=== PATIENT | male | born 1930 | race Caucasian/White ===

== ENCOUNTER 2016-09-21 09:58 | Day surgery (SDC) | payer MEDICARE ==
[~2016-09-21 09:58] MED LIST: ASPI81 PO; CARD2TAB PO; CENTTAB9 PO; CYCL-36 PO; GLUCTAB47 PO; LORT5TAB PO; METO50TA PO; OMEP20CA5 PO; OYST500T77 PO; VITA500T10 PO; ZOCO40TA PO
[2016-09-21 10:56] VITALS: BP 124/71; PULSE 93; RESP 18; TEMP 98; O2SAT 98
--- NOTE | 2016-09-21 13:55 | RADRPT ---
EXAM DATE/TIME: 09/21/2016 11:01 [place] COMPARISON: No previous studies available for comparison. EXTERNAL COMPARISON : [facility], CT THORAX, W/O CONTRAST, September 01, 2016. June 16. July 04, 2015. May 09, 2015.January 03, 2015. November 05, 2014. August 02, 2014. [facility], CT THORAX, W/O CONTRAST, April 17, 2014. INDICATIONS : Right pleural effusion. MEDICAL HISTORY : Hypertension. Gastroesophageal reflux disease. Arthritis. Cerebrovascular accid ent. Bronchiectasis. Restrictive lung disease. Right apical infiltrate. Aortic valve stenosis. SURGICAL HISTORY : CABG. Bilateral cataract. Multiple EGD and colonoscopy. Left knee arthrosc opy. Right carotid endarterectomy. ENCOUNTER: Initial ACUITY: 1 month PAIN SCORE: 0/10 LOCATION: Right chest MEASUREMENTS: SKIN TO PARIETAL PLEURA: Inadequate fluid SKIN TO MAX SAFE DEPTH: Inadequate fluid ESTIMATED FLUID VOLUME: 53 cc FLUID COMPOSITION: simple FINDINGS: Pleural effusion as above. CONCLUSION: There is not enough fluid for thoracentesis. Roberto Morgan MD FACR on September 21, 2016 at 13:52 Board Certified Radiologist. This report was verified electronically.
== END 2016-09-21 11:30 | disposition home or self-care (01) ==
LOC: HRAD 09:58 → HRIP 09:59 → HRAD 11:30
PROVIDERS: ATTEND Internal Medicine Pulmonary Disease
DX: J90 Pleural effusion, not elsewhere classified (principal)
CPT/HCPCS: 76604

== ENCOUNTER 2018-01-14 07:27 | Day surgery (SDC) | payer MEDICARE ==
[~2018-01-14] VITALS: Ht 170.2 cm; Wt 76.1 kg
[2018-01-14] MEDS ORDERED: IOHEXOL 350 MG/ML 100 ML BTL (for Cath Lab) OTHER ONE (07:28)
[2018-01-14] MEDS ORDERED: TAMS0.4C4 (08:17)
[2018-01-14] MEDS ORDERED: POTA10CA PO (08:17)
[2018-01-14] MEDS ORDERED: MEMA1TAB PO (08:17)
[2018-01-14] MEDS ORDERED: FLUT50SP EACH NARE (08:17)
[2018-01-14] MEDS ORDERED: FURO20TA PO (08:17)
[2018-01-14] MEDS ORDERED: OMEP40CA2 (08:17)
[2018-01-14] MEDS ORDERED: ALBUAER3 (08:17)
[2018-01-14] MEDS ORDERED: ASPI-516 CHEW (08:17)
[2018-01-14 08:19] VITALS: BP 117/67; PULSE 77; RESP 18; TEMP 98.1; O2SAT 99
--- NOTE | 2018-01-14 08:57 | RADRPT ---
EXAM DATE/TIME: 01/14/2018 08:21 [facility] COMPARISON: No previous studies available for comparison. INDICATIONS : TAVR. MEDICAL HISTORY : None. SURGICAL HISTORY : None. ENCOUNTER: Initial ACUITY: 1 day PAIN SCORE: 0/10 LOCATION: Bilateral chest FINDINGS: Single view chest demonstrates the patient be post median sternotomy. The heart is mildly enlarged. T he lungs demonstrate chronic appearing interstitial changes but are otherwise clear. Visualized bony structures are grossly intact CONCLUSION: 1. Cardiomegaly and postsurgical changes. No acute abnormality identified. Blade Morgan MD on January 14, 2018 at 8:54 Board Certified Radiologist. This report was verified electronically.
[2018-01-14] MEDS ORDERED: HEPARIN-NS/PF INJ 1,000 ML ONE (11:08)
[2018-01-14] MEDS ORDERED: MIDAZOLAM HCL 2 MG/2 ML VIAL ONE (11:09)
--- NOTE | 2018-01-14 11:37 | PD.FRAIL ---
Date: January 14, 2018 Height: 170.18 cm Weight: 76.1 kg Albumin 01/14/18 08:00: Albumin 3.7 Pass/Fail: Pass [place] Activities Daily Living Ambrosio ADL Score: Bathing(bathes self/help in single area): [place] (1), Dressing(gets/puts clothes on self): [place] (1), Toileting(goes without help): [place] ( 1), [facility]assisted or [facility] [place] (1), Continence( complete self-control): [place] (1), Feeding(self, prep by another allowed) : [place] (1), Total: 6 Pass/Fail: Pass Supervisor Post Wave Strength Grasp 1: 12 Grasp 2: 10 Grasp 3: 12 Average: 11.3 Pass/Fail: Fail 15-Foot Walk 15-Foot Walk (seconds): 11 Pass/Fail: Fail (USES CANE) Total Frailty Total Frailty (out of 4): 2 (PATIENT LIVES ALONE, POOR HISTORIAN, POOR MEMORY RECALL) Frailty Index Score Reference Supervisor Post Wave Strength: BMI: <=24 Cutoff for pourer metal strength(Kg): <=29 BMI: 24.1-28 Cutoff for pourer metal strength(Kg): <=30 BMI: >28 Cutoff for pourer metal strength(Kg): <=32 15-Foot Walk: Height: <=173 cm 15-Foot Walk Cutoff Time: >=7 seconds Height: >173 cm 15-Foot Walk Cutoff Time: >=6 seconds Sandeep Hopper RN January 14, 2018 11:37
[2018-01-14] MEDS ORDERED: oxyCODONE/ACETAMINOPHEN 5 MG/325 MG TAB PO PRN (12:15)
[2018-01-14] MEDS ORDERED: SODIUM CHLOR 0.9% 250 ML INJ 250 ML IV PRN (12:15)
[2018-01-14] MEDS ORDERED: LORazepam 2 MG/ML VIAL IV PUSH PRN (12:15)
[2018-01-14] MEDS ORDERED: BACITRACIN OINT 0.9 GM PKT TOP ONE (12:15)
[2018-01-14] MEDS ORDERED: ATROPINE SULFATE 1 MG/ML VIAL IV PUSH PRN (12:15)
[2018-01-14] MEDS ORDERED: LIDOCAINE HCL 1% 50 ML VIAL INFIL PRN (12:15)
[2018-01-14] MEDS ORDERED: MISC INFORMATION XX ONE (12:15)
--- NOTE | 2018-01-14 12:20 | CATHPROC ---
[employer] HIS Report Study Information Study Number Admission Scheduled Start Study Start [id number] Jan 14 2018 7:27AM 01/14/2018 Jan 14 2018 8:56AM [place] [facility] Cardiac Catheterization Admit Source Facility Department Other [facility] - Chief Medical Director Physician and Clinical Staff Initial Armando Hung [place] Tana Matthews RN Other cathlab, cathlab Recorder Mandeep Robison RCIS(BS) Scrub Janet King RT(R) Procedures Performed Procedure Location (Site) Vessel Name Coronary Angiograms LCA Left Coronary Coronary Angiograms RCA Right Coronary Coronary Angiograms HAILE-LAD Left Coronary Coronary Angiograms SVG-DIAG Left Coronary Coronary Angiograms SVG-RCA Right Coronary Equipment Time Community [facility] Coordinator Description Size Mfg Part Number Used/Scraped ARROW INTERNATIONAL CATHETER, FR.7 BALLOON [id number] 11:20 FR 7 Used INC. WEDGE PRESSURE *[id number] TRANSDUCER, TRWe ClusterAVE [id number] 11:20 BOYKIN SHABAZZ * Used W/STOCKCOCK *[id number] 12:00 CARDIVA MEDICAL VASCADE, FR5 CLOSURE SYSTEM FR 5 Used *[id number] 11:59 CARDIVA MEDICAL VASCADE, FR6 CLOSURE SYSTEM FR 6\7 Used *[id number] *[id number] *[id number] 11:20 MEDLINE INDUSTRIES PACK, CCL CUSTOM * Used *[id number] 11:20 Femasys PACER PEN, SKIN DUAL W/ RULER * Used *[id number] 11:48 MEDTRONIC JL 4.0 DXTERITY CATHETER FR 5 Used *[id number] 11:20 Matchup MEDICAL WIRE, 3MMJ .035 180CM 180CM Used *[id number] 11:53 Matchup MEDICAL WIRE, EXCHANGE 260CM 3MMJ 260CM Used *[id number] 11:20 NAMIC MANIFOLD, 2 PORT * Used *[id number] 11:20 NAMIC MANIFOLD, 4 PORT * Used *[id number] 11:20 NYCOMED OMNIPAQUE, 350 MG, 150ML 150ML [id number] Used [id number] 11:20 ALATORRE MEDICAL BLANKET,WARM AIR CCL * Used *[id number] 11:20 TERUMO MEDICAL SHEATH, FR5 TERUMO (10CM) FR 5 Used *[id number] 11:20 TERUMO MEDICAL SHEATH, FR7 TERUMO (10CM) FR 7 Used *[id number] History: Current Medications Medication Dosage/Unit Route Frequency Last Date/Time Taken ASA History: Allergies Allergy Reaction No Known Allergies Haykdde-Yla-Lrl Reductase ACHES Inhibitor egg banana milk wheat History: Risk Factors Family History of Hypertension Dyslipidemia Previous DE Previous Heart Failure Premature CAD Yes Yes No No Yes Prior Valve Prior PCI Prior PCIDate Prior CABG Prior CABGDate Surgery No Yes 08/30/2009 Yes 08/30/2002 Cerebrovascular 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 Diabetes Disease Disease Disease No Yes No Yes No History: Symptoms/Diagnosis Selection Items SOB History: CV Disease Selection Items Known CAD History: Stress Tests Stress or Imaging Studies Performed No History: Other Disease Selection Items CAD HTN History: DE/CV Data Previous Cath Date Previous CABG Date 08/30/2009 08/30/2002 History: Other Current Smoker Method Quit Packs a Day Years Used Pack Years No Cigarettes 46 Years Ago 3 27 81 Labs Hgb (g/dl) Hct (%) WBC (l/cumm) Platelets (thousands) 11.60-17.00 35.00-51.00 4.00-11.00 150.00-450.00 12.4 39 6.1 210 Glucose (mg/dl) BUN (mg/dl) Creatinine (mg/dl) BUN:Creatinine (1:x) 74.00-106.00 7.00-18.00 0.50-1.30 10.00-20.00 98 16 0.9 17.8 Na (meq/l) K (meq/l) 136.00-145.00 3.50-5.10 136 4.5 INR (PTT:PT) 0.90-1.10 1 CPK-MB (ng/ML) 0.50-3.60 Not Drawn Medication Medication Total Dose (Bolus/Oral) Medication Total Dosage/Unit 1% XYLOCAINE 20 mL FENTANYL 25 mcg VERSED 0.5 mg Medications (Bolus/Oral) Medication Time Given Dosage/Unit Administered By Reason VERSED 01/14/2018 11:32:25 AM 0.5 mg Tana Matthews 0.5 mg VERSED given in lab by Tana Matthews RN in Left Antecubital via Peripheral IV. Ordered by Armando Ron. FENTANYL 01/14/2018 11:34:32 AM 25 mcg Tana Matthews 25 mcg FENTANYL given in lab by Tana Matthews RN in Left Antecubital via Peripheral IV. Ordered b y Armando Ron. 1% XYLOCAINE 01/14/2018 11:37:43 AM 20 mL Armando Ron 20 mL 1% XYLOCAINE given in lab by Armando Ron in Right Groin via Subcutaneous. Medication (Drip) Medication Time Given Dosage/Unit Concentration/Unit Diluent (ml) Solution IV Solutions 01/14/2018 11:11:19 AM 0 mL (IV) 500 NaCl .9 Patient arrived on IV Solutions in Left Antecubital via Peripheral IV. Pump/Drip Flow = 20 ml/hr usin g NaCl .9. Initial Case Assessment Cardiovascular HR Rhythm NIBP Chest Pain 73 nsr 149/75 0 Edema Present Skin color Skin None Normal Warm Dry Circulatory - Right Pulses Dorsalis Pedis Femoral 1 2 Scale (0,1,2,3,4,d) Circulatory - Left Pulses Dorsalis Pedis Femoral 1 2 Scale (0,1,2,3,4,d) Neurological State Oriented to time-place- Alert Moves all extremities person Respiration - General Respiration Rate SpO2 (%) (B/min) 16 100 Chronological Log Time Study Chronological Log 11:02:00 Patient arrived via Bed. 11:02:15 Patient Name, D.O.B, / Armband Verified By R.N. 11:02:30 Consent signed by the physician and the patient and verified by the Chief Medical Director staff. 11:11:08 Pre-op and post- op instructions given; patient acknowledges understanding of instructions. 11:11:13 Verbal Stimulation=2 Physical Stimulation=2 Airway=2 Respiration=2 TOTAL=8. (0=absent, 1=li mited, 2=present) 11:11:13 Presedation assessment performed by Chief Medical Director RN. 11:11:14 Immediate Presedation assesment performed by physician. 11:11:15 Patient has been NPO for More than 6Hrs. 11:11:15 Skin Breakdown- none per patient 11:11:16 Patient Warmer Placed on the Table. 11:11:17 Franky Prominences Protected 11:11:18 A # 20 IV was noted in the Antecubital (left). Grade = 0 11:11:19 Patient arrived on IV Solutions in Left Antecubital via Peripheral IV. Pump/Drip Flow = 20 ml/hr using NaCl .9. 11:11:19 History and physical on the chart or being dictated. Vitals capture started with the following parameters, Patient=Adult, Interval=5 min, Initial Pr jvzpua=139 mmHg, 11:17:28 Deflation Rate=5 mmHg, Cuff placed on Left Arm 11:18:10 HR=73 bpm, SQUL=815/75 mmhg, PgM3=656.0 %, Resp=14 B/min, Pain=0, Marco A=10, Womack=2 Assessment: Initial Case, HR=73 BPM, Rhythm=nsr, UGOI=667/75 mmhg, Chest Pain=0, Edema=None, Co vanessa=Normal, Skin = Warm, Dry Right Pulses: Zak Ped=1, Femoral=2 11:20:58 Left Pulses: Zak Ped=1, Femoral=2 Neurological: State=Alert, Ox3, PARKER Respiration: Resp=16 B/min, XsS2=926 % 11:21:20 Bilateral groins prepped with 2% chlorhexidine, and draped after a 3 minute waiting time. 11:23:09 HR=74 bpm, YJJZ=274/85 mmhg, JlR0=820.0 %, Resp=16 B/min, Pain=0, Marco A=10, Womack=2 11:24:49 MD arrived. 11:27:10 Contrast Scanned 11:27:11 Immediate Presedation assesment performed by physician. 11:27:29 Reference ECG taken 11:28:10 HR=72 bpm, ROCR=776/77 mmhg, QjL9=761.0 %, Resp=20 B/min, Pain=0, Marco A=10, Womack=2 11:32:25 0.5 mg VERSED given in lab by Tana Matthews, RN in Left Antecubital via Peripheral IV. O rdered by Armando Ron. 11:32:29 Pressure channel 1 zeroed. 11:33:12 HR=75 bpm, JTUG=732/74 mmhg, GlV8=031.0 %, Resp=15 B/min, Pain=0, Marco A=10, Womack=2 25 mcg FENTANYL given in lab by Tana Matthews RN in Left Antecubital via Peripheral IV. Ord ered by Asaf, 11:34:32 Armando. Time Out. Correct patient, correct procedure, correct physician, labs, allergies, and equipment verified with tailings dam laborer 11:37:03 team present. Fire risk assesment completed (see hard stop sheet for coding). Time Out Conc urred by MD and individual staff in procedure. 11:37:38 Case Start 11:37:39 Verbal Stimulation=2 Physical Stimulation=2 Airway=2 Respiration=2 TOTAL=8. (0=absent, 1=li mited, 2=present) 11:37:43 20 mL 1% XYLOCAINE given in lab by Armando Ron in Right Groin via Subcutaneous. 11:38:13 HR=75 bpm, VPHN=140/80 mmhg, SaH9=815.0 %, Resp=12 B/min, Pain=0, Marco A=10, Womack=2 11:40:14 Access site was Right Femoral Artery. 11:40:18 A SHEATH, FR5 TERUMO (10CM) FR 5 was advanced into the Fem Art (right) using the Percutaneo us technique. 11:41:06 Access site was Right Femoral Vein. 11:41:11 A SHEATH, FR7 TERUMO (10CM) FR 7 was advanced into the Fem Vein (right) using the Percutane ous technique. 11:41:15 A CATHETER, FR.7 BALLOON WEDGE PRESSURE FR 7 was inserted via Fem Vein (right) Recorded Pressure: RA, HR=74, Condition=Condition 1 11:42:37 (Right Atrium) RA Recorded Pressure: RV, HR=75, Condition=Condition 1 11:43:08 (Right Ventricle) RV 11:43:10 HR=74 bpm, TKMT=423/77 mmhg, SpO2=99.0 %, Resp=14 B/min, Pain=0, Marco A=10, Womack=2 Recorded Pressure: MPA, HR=74, Condition=Condition 1 11:43:50 (Main Pulmonary Artery) MPA Recorded Pressure: PCW, HR=73, Condition=Condition 1 11:45:22 (Pulmonary Capillary Wedge) PCW 11:45:52 Saturation: Site=PA (Pulmonary Artery) , O2=75.2 %, Hgb=12.4 gm/dl, Condition=Condition 1. Used in calculation. 11:46:04 [place] Sarmad Catheter Removed A JR 4.0 INFINITI CATHETER FR 5 was advanced over a wire. OMNIPAQUE, 350 MG, 150ML 150ML was us ed for 11:46:05 injections. 11:46:31 Saturation: Site=Ao (Aorta) , O2=97.8 %, Hgb=12.4 gm/dl, Condition=Condition 1. Used in rosanna culation. 11:48:02 The RCA was injected and visualized at various angles. OMNIPAQUE, 350 MG, 150ML 150ML used . 11:48:06 HR=74 bpm, IRHI=974/77 mmhg, OpJ3=821.0 %, Resp=12 B/min, Pain=0, Marco A=10, Womack=2 Recorded Pressure: Ao, HR=74, Condition=Condition 1 11:48:10 (Aorta) Ao 137/60/94 11:48:47 The SVG-DIAG was injected and visualized at various angles. OMNIPAQUE, 350 MG, 150ML 150ML used. 11:50:05 The SVG-RCA was injected and visualized at various angles. OMNIPAQUE, 350 MG, 150ML 150ML u sed. 11:53:08 HR=73 bpm, XAMU=308/70 mmhg, IjZ0=676.0 %, Resp=12 B/min, Pain=0, Marco A=10, Womack=2 11:53:20 The previous wire was exchanged for a WIRE, EXCHANGE 260CM 3MMJ 260CM. After removing the current catheter a SHYAM INFINITI CATHETER FR 5 was advanced over a WIRE, EXCH CHANDANA 260CM 11:53:24 3MMJ 260CM. 11:54:14 Wire removed 11:55:06 The HAILE-LAD was injected and visualized at various angles. OMNIPAQUE, 350 MG, 150ML 150ML used. After removing the current catheter a JL 4.0 DXTERITY CATHETER FR 5 was advanced over a WIRE, 3 MMJ .035 180CM 11:55:32 180CM. 11:57:02 The LCA was injected and visualized at various angles. OMNIPAQUE, 350 MG, 150ML 150ML used . 11:58:11 HR=72 bpm, QRJB=511/67 mmhg, SpO2=99.0 %, Resp=12 B/min 11:58:12 Catheter was removed 11:58:15 VASCADE, FR6 CLOSURE SYSTEM FR 6\7 placement in the Fem Vein (right) 11:59:15 VASCADE, FR5 CLOSURE SYSTEM FR 5 placement in the Fem Art (right) 12:01:50 Case End 12:01:52 No case complications noted. 12:01:54 Cine recording checked. 12::55 Small hematoma Right Groin. Pressure applied 12:01:55 Bedside Report will be given. 12:01:58 Verbal Stimulation=2 Physical Stimulation=2 Airway=2 Respiration=2 TOTAL=8. (0=absent, 1=li mited, 2=present) 12:02:04 A Left and Right Heart Cath was performed. 12:03:08 HR=76 bpm, RRZW=297/68 mmhg, SpO2=98.0 %, Resp=16 B/min, Pain=0, Marco A=10, Womack=2 12:08:09 HR=77 bpm, GEXJ=435/81 mmhg, SpO2=98.0 %, Resp=15 B/min, Pain=0, Marco A=10, Womack=2 12:13:10 HR=73 bpm, UDTY=383/76 mmhg, SpO2=99.0 %, Resp=15 B/min, Pain=0, Marco A=10, Womack=2 12:18:11 HR=74 bpm, JZTH=350/75 mmhg, SpO2=99.0 %, Resp=15 B/min, Pain=0, Marco A=10, Womack=2 12:20:17 Sterile dressing applied to site. Hematoma expressed, groin WNL. 12:20:29 Vitals capture stopped. 12:20:31 [facility] - Contrast Media Used In Study Contrast Total Opened (mL) Total Used (mL) Total Wasted (mL) Omnipaque 75 75 0 End Study - Maximum Contrast Load Max Contrast Load (mL) 422.7 End Study - Radiation Exposure Fluoro Time (minutes) 4.8 End Study - Patient Disposition Complications Transferred To Interventional Outcome No Chief Medical Director Holding No attempt made
--- NOTE | 2018-01-14 12:58 | MA ---
cc: Armando Ron MD DATE: 01/14/2018 PROCEDURES PERFORMED: 1. Fluoroscopy with interpretation. 2. Coronary angiography. 3. Coronary bypass graft angiography. 4. Right heart catheterization. METHOD: The risks, benefits and alternatives discussed with the patient. The patient understood and consented to the procedure. The patient brought into the catheterization lab, placed on the catheterization table. The right groin prepped and draped in a sterile fashion. The right groin was anesthetized with 2% lidocaine. The right common femoral artery was cannulated. A 5-Samoan 11 cm sheath was placed without difficulty. The right femoral vein was accessed. A 7-Samoan 11 cm sheath was placed without difficulty. Right heart catheterization: A 7-Samoan Massillon-Sarmad pulmonary arterial catheter was advanced through the right femoral venous sheath to the level of the right atrium under fluoroscopic guidance. Hemodynamics were performed in all chambers while advancing to the pulmonary capillary wedge position. 1. Right atrial pressure measured 12 mm. 2. Right ventricular pressure is 38/1 mmHg. 3. Pulmonary arterial pressure 37/12 mmHg. 4. Pulmonary capillary wedge pressure 22 mmHg. Cardiac output 3.3 liters per minute. Cardiac index 6.3 liters per minute/m2. Coronary angiography: 1. Left main coronary artery has bilateral luminal irregularities. 2. Left anterior descending coronary artery has 70% stenosis proximally and is 100% occluded in the midsegment and there is a 90% diagonal branch stenosis. 3. Right coronary is small caliber size, appears to have an occluded first obtuse marginal branch which is small. There is 50% stenosis throughout the mid segment of the circumflex. 4. The right coronary artery is occluded proximally. Coronary bypass graft angiography: 1. Left internal mammary to the left anterior descending coronary artery is patent. 2. Left lesser saphenous vein graft to the diagonal branch patent. 3. Saphenous vein graft to the right coronary artery is widely patent. CONCLUSIONS: 1. Severe crow 3-vessel coronary artery disease. 2. 3/3 coronary bypass grafts widely patent. 3. Normal left and right-sided filling pressures,m normal pulmonary pressures, normal cardiac output index. PLAN: Monitor the patient closely for any post-procedural complications. Anticipate possible discharge later today. We will then have a discussion about consideration for transcatheter aortic valve replacement. MD ROLO Rios/DL , 12:15 PM , 12:57 PM
[2018-01-14 14:37] LABS: BILIRUBIN, URINE NEG (NEG); BLOOD, URINE SMALL (NEG); GLUCOSE,URINE NEG (NEG); KETONE, URINE TRACE mg/dL (NEG); NITRITE,URINE NEG (NEG); PH, URINE 6.5 (5.0-8.5); URINE COLOR LIGHT-YELLOW (YELLW/STRAW); URINE LEUKOCYTE ESTERASE NEG (NEG)
--- NOTE | 2018-01-14 16:20 | PD.CAR.PN ---
CVT Progress Note Subjective/Hospital Course: pt seen and evaluated/ full consult to follow RISK SCORES About the STS Risk Calculator Procedure: AV Replacement Risk of Mortality: 4.364% Morbidity or Mortality: 24.278% Long Length of Stay: 10.988% Short Length of Stay: 19.466% Permanent Stroke: 2.456% Prolonged Ventilation: 13.679% DSW Infection: 0.267% Renal Failure: 6.94% Reoperation: 9.657% Objective: Vital Signs Date Time Temp Pulse Resp B/P (MAP) Pulse Ox O2 Delivery O2 Flow Rate FiO2 01/14/18 10:45 96 Room Air 01/14/18 08:19 98.1 77 18 117/67 (84) 99 Labs: Laboratory Tests Test 01/14/18 08:00 01/14/18 14:10 Albumin 3.7 GM/DL (3.4-5.0) Urine Color LIGHT-YELLOW (YELLW/STRAW) Urine Turbidity CLEAR (CLEAR) Urine pH 6.5 (5.0-8.5) Urine Specific Kerrick 1.038 (1.002-1.035) Urine Protein NEG mg/dL (NEG-TRACE) Urine Glucose (UA) NEG mg/dL (NEG) Urine Ketones TRACE mg/dL (NEG) Urine Occult Blood SMALL (NEG) Urine Nitrite NEG (NEG) Urine Bilirubin NEG (NEG) Urine Urobilinogen LESS THAN 2.0 MG/DL (LESS Urine Leukocyte Esterase NEG (NEG) Urine RBC 1 /hpf (0-3) Urine WBC LESS THAN 1 /hpf (0-5) Microscopic Urinalysis Comment CULT NOT INDICATED Ora Ramirez January 14, 2018 16:20
--- NOTE | 2018-01-14 17:10 | MB ---
cc: Ora Ramirez DATE: 01/14/2018 HISTORY OF PRESENT ILLNESS: This is an 87-year-old male, patient of Dr. Ron, who has history of aortic stenosis, has been having some fatigue off and on for the last year, recently treated for pneumonia in November with 10-day course of antibiotics, has had a prior sternotomy with coronary artery bypass grafting in 2002, underwent cardiac catheterization today. Results are severe [place] 3-vessel disease, 3/3 coronary bypasses widely patent. Normal left and right filling pressures, normal pulmonary pressures and normal cardiac output and index. We were consulted to evaluate for transcatheter aortic valve replacement. PAST MEDICAL HISTORY: Includes aortic stenosis, coronary artery disease, diastolic CHF, anemia, ataxic gait. He uses a walker. Cervical radiculitis, degenerative disk disease, enlarged prostate, frequent falls, hypertension, hyperlipidemia, recent left lower lobe pneumonia, some history of cognitive impairment. He has had a history of a TIA, prior history of tobacco use. PAST SURGICAL HISTORY: Include left knee arthroscopy, back surgery by Dr. Varela 2 years ago L3-L4 spine fusion, coronary artery bypass graft x 3 in 2002, bilateral cataract surgery, colonoscopy. He has had some skin cancer removed on his forehead. He has had an EGD. He has had cervical epidural injections under fluoroscopy. Right endarterectomy, tonsillectomy. ALLERGIES: THE PATIENT HAS ALLERGIES TO STATINS, BANANAS, EGGS, MILK AND WHEAT. HOME MEDICATIONS: 1. Albuterol. 2. Aspirin. 3. Flonase. 4. Lasix. 5. Namenda. 6. Omeprazole. 7. Potassium. 8. Flomax. FAMILY HISTORY: Mother from sudden . Father from heart disease. SOCIAL HISTORY: , has 2 children. Daughter, Samaria Riley is at the bedside. Lives alone. Lives at [facility] but is still in the independent living area. He does still drive. He smoked for 25 years, quit smoking in 1971. Prior heavy ETOH, quit 2 years ago. Occasional glass of wine, but he quit that 6 months ago. REVIEW OF SYSTEMS: As above in the HPI, other 12 systems unremarkable. PHYSICAL EXAMINATION: VITAL SIGNS: Blood pressure 116/70, heart rate of 70, temperature afebrile, on room air O2 saturation 96%. GENERAL: Patient is awake, alert, in no acute distress. HEENT: Head is normocephalic, atraumatic. Pupils equal and reactive. Oral mucosa pink, moist. He does wear a hearing aid. NECK: Supple. No JVD. Well healed scar in the right neck area. HEART: Sounds S1, S2, grade III/ systolic murmur best noted left sternal border. LUNGS: Diminished in the bases, otherwise clear to auscultation. ABDOMEN: Soft, nontender, no masses, no organomegaly. EXTREMITIES: No cyanosis, clubbing, or edema. LABORATORY DATA: Shows albumin 3.7, hemoglobin 12, hematocrit of 39, white cell count of 6.1, platelet count of 210. INR 1.0, sodium 136, potassium 4.5, BUN is 16, creatinine 0.92. IMAGING STUDIES: Chest x-ray on the showed some minimal stranding infiltrates both lung bases, prior median sternotomy, COPD changes, some mild early heart failure. IMPRESSION: This is an 87-year-old male with history of coronary artery disease, prior midsternal sternotomy, bypass grafting x 3 in 2002. Risk factors include cognitive impairment, coronary artery disease, history of transient ischemic attack, diastolic heart failure. STS data has been documented and placed in the electronic record. The risk of mortality is 4.3. PLAN: Recommendation is for transcatheter aortic valve replacement. KRISTIAN Montana MD JRT/JOSE MANUEL , 04:29 PM , 05:10 PM
[2018-01-14] MEDS ORDERED: IOHEXOL 350 MG/ML 10 ML VIAL (for RAD DIAG) IVCONTRAST ONE (18:20)
--- NOTE | 2018-01-14 18:44 | RADRPT ---
EXAM DATE/TIME: 01/14/2018 17:44 [place] COMPARISON: No previous studies available for comparison. INDICATIONS : Pre op TAVR. IV CONTRAST: 97 cc Omnipaque 350 (iohexol) IV RADIATION DOSE: 9.20 CTDIvol (mGy) MEDICAL HISTORY : Cerebrovascular disease. Cardiovascular disease SURGICAL HISTORY : CABG ENCOUNTER: Initial ACUITY: 1 day PAIN SCALE: 0/10 LOCATION: chest TECHNIQUE: Volumetric scanning was performed using a multi-row detector CT scanner. The data was post processed with a variety of visualization algorithms including full volume maximum intensity projection, multi -planar sliding thin slab reformation, curved planar reformation, and surface rendering techniques. Using automated exposure control and adjustment of the mA and/or kV according to patient size, radiat ion dose was kept as low as reasonably achievable to obtain optimal diagnostic quality images. DIC OM format image data is available electronically for review and comparison. FINDINGS: CARDIAC: The patient is status post sternotomy and coronary bypass surgery. The coronary system is right domin ant. Calcifications are seen throughout the mo[place] coronary arteries. There are 2 bypass grafts seen , one extending to the right coronary artery and the other extending to a diagonal. It also appears t he left internal mammary artery has been used for an LAD bypass graft. The bypass grafts are 4.3 cm d istal to the aortic valve. AORTIC ROOT/VALVE: There are 3 cusps. There are heavy aortic valve calcifications present. The aortic root measures 2.8 cm. THORACIC AORTA: Mid thoracic aorta measures 3.7 cm. There is mild calcification seen at the ascending aorta and aorti c arch. There are calcifications are seen at the origin of the great vessels. ABDOMINAL AORTA: There is atherosclerotic thickening and calcification seen throughout the abdominal aorta and through out the arterial system. An area of significant stenosis is not clearly identified. CELIAC ARTERY: Celiac artery is widely patent. Calcifications are seen at the origin. SMA: Superior mesenteric artery is widely patent. Calcifications are seen at the origin. RIGHT RENAL ARTERY: Right renal artery is widely patent. Calcifications are seen at the origin. LEFT RENAL ARTERY: Left renal artery is widely patent. Calcifications are seen at the origin. RIGHT COMMON ILIAC: No evidence of aneurysm, mural thrombus, dissection, or stenosis. Scattered calcifications are seen. The common femoral measures 9 mm.. There's a 4.5 cm mass seen in the right groin with central flow/c ontrast-enhancement consistent with a pseudoaneurysm. LEFT COMMON ILIAC: No evidence of aneurysm, dissection, or stenosis. There is mural thickening/plaque at the left commo n iliac artery without significant stenosis. Scattered calcifications are seen throughout. The common femoral measures 1 cm. THORAX: There is increased density seen at the posterior aspect of the right upper lobe including a irregular 0.9 cm masslike area seen. This could all be secondary to consolidation. An underlying neoplastic pr ocess cannot be excluded. There some minimal increased density the posterior lower lobes bilaterally likely related to atelectasis. There are minimal bilateral pleural effusions. There is a enlarged lym ph nodes seen in the precarinal region measuring 1.9 cm. ABDOMEN: The liver, spleen, pancreas, adrenal glands and right kidney are normal. There is a 1.1 cm cyst at th e left kidney. There is degenerative change and postoperative change in the lumbar spine with surgica l hardware. PELVIS: Again noted is the right common femoral pseudoaneurysm. Calcifications are seen the prostate. CONCLUSION: 1. Status post sternotomy and coronary artery bypass surgery. 2. Extensive aortic valve calcifications. 3. 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 4. Irregular density in the posterior right upper lobe. This is nonspecific. Consolidation or neoplas m could have this similar appearance. Ideally, a PET FDG study would be performed to evaluate this re gion. Abdias Harman MD on January 14, 2018 at 18:20 Board Certified Radiologist. This report was verified electronically.
--- NOTE | 2018-01-15 13:58 | EKG ---
Date Performed: 01/14/2018 Time Performed: 14:29:34 PTAGE: 87 years EKG: Sinus rhythm . Inferior/lateral ST-T changes may be due to myocardial ischemia Abnormal ECG PREVIOUS TRACING : 11/30/2009 08.30 Since the previous tracing, no significant change noted DOCTOR: Andres Finney Interpretating Date/Time 01/15/2018 13:55:18
== END 2018-01-14 18:39 | disposition home or self-care (01) ==
LOC: HDIC 07:27 → HDOC 07:27
PROVIDERS: ATTEND Internal Medicine
DX: I25.10 Atherosclerotic heart disease of native coronary artery without angina pectoris (principal); I35.0 Nonrheumatic aortic (valve) stenosis; I10 Essential (primary) hypertension; J44.9 Chronic obstructive pulmonary disease, unspecified; Z95.1 Presence of aortocoronary bypass graft; Z79.82 Long term (current) use of aspirin; Z87.891 Personal history of nicotine dependence; Z86.73 Personal history of transient ischemic attack (TIA), and cerebral infarction without residual deficits
CPT/HCPCS: 71045; 74174; 81001; 82040; 82810; 87641; 93005; 93457; 94010; C1760; C1769; C1893; G0269; J1644; J2250; J3010; Q9967

== ENCOUNTER → 2018-02-14 | Outpatient (CLI) | payer MEDICARE ==
[~2018-02-14] MED LIST changes: +ALBUAER3; +ASPI-516 CHEW; -ASPI81 PO; -CARD2TAB PO; -CENTTAB9 PO; -CYCL-36 PO; +FLUT50SP EACH NARE; +FURO20TA PO; -GLUCTAB47 PO; -LORT5TAB PO; +MEMA1TAB PO; -METO50TA PO; -OMEP20CA5 PO; +OMEP40CA2; -OYST500T77 PO; +POTA10CA PO; +TAMS0.4C4; -VITA500T10 PO; -ZOCO40TA PO
[2018-02-14 10:41] LABS: AUTOMATED NEUTROPHIL # 3.8 TH/MM3 (1.8-7.7); BASOPHIL # 0.1 TH/MM3 (0-0.2); BASOPHIL % 1.8 % (0.0-2.0); EOSINOPHIL # 0.5 TH/MM3 (0-0.4); EOSINOPHIL % 7.5 % (0.0-4.0); HEMATOCRIT 35.2 % (39.0-51.0); LYMPH % 19.4 % (9.0-44.0); LYMPHOCYTE # 1.2 TH/MM3 (1.0-4.8); MEAN CELL VOLUME 92.3 FL (80.0-100.0); MEAN CORPUSCULAR HEMOGLOBIN 31.6 PG (27.0-34.0); MEAN CORPUSCULAR HGB CONC 34.2 % (32.0-36.0); MEAN PLATELET VOLUME 8.7 FL (7.0-11.0); MONO % 8.5 % (0.0-8.0); MONOCYTE # 0.5 TH/MM3 (0-0.9); NEUT % 62.8 % (16.0-70.0); PLATELET COUNT 175 TH/MM3 (150-450); RED BLOOD COUNT 3.81 MIL/MM3 (4.50-5.90); RED CELL DISTRIBUTION WIDTH 14.6 % (11.6-17.2); WHITE BLOOD COUNT 6.1 TH/MM3 (4.0-11.0)
[2018-02-14 10:48] LABS: INTERNATIONAL NORMALIZED RATIO 1.1 RATIO; PROTHROMBIN TIME - PATIENT 10.7 SEC (9.8-11.6)
[2018-02-14 11:15] LABS: BICARBONATE 28.1 MEQ/L (21.0-32.0); CALCIUM 8.8 MG/DL (8.5-10.1); CREATININE 0.97 MG/DL (0.60-1.30)
== END ==
LOC: CLAB 10:08
PROVIDERS: ATTEND Internal Medicine
DX: Z01.812 Encounter for preprocedural laboratory examination (principal); I35.0 Nonrheumatic aortic (valve) stenosis
CPT/HCPCS: 36415; 80048; 85025; 85610; 86850; 86900; 86901

== ENCOUNTER 2018-02-16 05:32 | Inpatient (IN) | payer MEDICARE ==
[2018-02-16] VITALS (10 sets, daily range): BP systolic 107–144; BP diastolic 40–67; PULSE 68–92; RESP 16–18; TEMP 94.4–98.2; O2SAT 96–100
[~2018-02-16] VITALS: Ht 170.2 cm; Wt 69.0 kg
[2018-02-16] MEDS ORDERED: POVIDONE IODINE 5% (ANTISEPSIS KIT) 4 APPLICATIONS EACH NARE PRN (06:00)
[2018-02-16] MEDS ORDERED: INSULIN HUMAN REGULAR 1,000 UNITS/10 ML VIAL SQ PRN (06:00)
[2018-02-16] MEDS ORDERED: METOPROLOL TARTRATE 25 MG TAB PO PRN (06:00)
[2018-02-16] MEDS ORDERED: SODIUM CHLORID 0.9% 500 ML IV PRN (06:00)
[2018-02-16] MEDS ORDERED: LACTATED RINGER'S 1000 ML IV PRN (06:00)
[2018-02-16] MEDS ORDERED: ceFAZolin 2 GM PREMIX 50 ML IV PRN (06:00)
[2018-02-16] MEDS ORDERED: ASPIRIN 325 MG TAB PO PRN (06:00)
[2018-02-16] MEDS ORDERED: MUPIROCIN 2% OINT 1 APPLIC/GM SYRINGE EACH NARE PRN (06:00)
[2018-02-16] MEDS ORDERED: CHLORHEXIDINE GLUCONATE 2 % 1 PACK (2 CLOTHS) TOPICAL PRN ×2 (06:00)
[2018-02-16] MEDS ORDERED: POVIDONE IODINE 5% (ANTISEPSIS KIT) EACH NARE PRN (06:00)
[2018-02-16] MEDS ORDERED: PROTAMINE SULFATE 50 MG/5 ML VIAL ONE (06:29)
[2018-02-16] MEDS ORDERED: HEPARIN SODIUM - IV 10,000 UNITS/10 ML VIAL ONE (06:29)
[2018-02-16] MEDS ORDERED: MIDAZOLAM HCL 2 MG/2 ML VIAL ONE (07:00)
--- NOTE | 2018-02-16 07:54 | MH ---
cc: Armando Ron MD DATE OF ADMISSION: 02/16/2018 INDICATION: Aortic stenosis. HISTORY OF PRESENT ILLNESS: This is an 87-year-old gentleman who follows with me in the outpatient setting, who has now recently described worsening symptoms of dyspnea and fatigue. His workup consisted of an echocardiogram which revealed severe aortic valve stenosis. He has a prior history of coronary artery bypass grafting. He was evaluated by cardiothoracic surgery and felt to be high risk for consideration of a repeat sternotomy with surgical aortic valve replacement. He then began a workup for transcatheter aortic valve replacement. He is now here today for a planned elective procedure. PAST MEDICAL HISTORY: Aortic valve stenosis, coronary artery disease with coronary bypass surgery, diastolic congestive heart failure, anemia, ataxic gait, degenerative joint disease, hypertension, hyperlipidemia, prior pneumonia, dementia, history of transient ischemic attack. ALLERGIES: STATINS, BANANAS, EGGS, MILK AND WHEAT. HOME MEDICATIONS: 1. Albuterol. 2. Aspirin. 3. Flonase. 4. Lasix. 5. Namenda. 6. Omeprazole. 7. Potassium. 8. Flomax. FAMILY HISTORY: Denies any family history of early coronary disease or sudden cardiac . SOCIAL HISTORY: Lives at [facility]. He denies any alcohol, tobacco or drug use. REVIEW OF SYSTEMS: A 12-point review of system was performed and is negative unless otherwise as noted in history of present illness. PHYSICAL EXAMINATION: VITAL SIGNS: Temperature is 98, pulse is 76, blood pressure 107/64 mmHg. GENERAL: Alert and oriented x 3 in no acute distress. HEENT: Shows pupils are reactive to light and accommodation. Extraocular movements are intact. No elevation of jugular venous distention. No thyromegaly. No lymphadenopathy, no carotid bruits. LUNGS: Clear to auscultation bilaterally. CARDIOVASCULAR: Regular with a 3/6 crescendo/decrescendo late peaking murmur at left sternal border. ABDOMEN: Nontender, nondistended with good bowel sounds. No hepatosplenomegaly. EXTREMITIES: Show no clubbing, cyanosis or edema. Good peripheral pulses. NEUROLOGIC: Cranial nerves intact. Motor, sensory grossly intact. LABORATORY DATA: WBC 6.1, hemoglobin is 12.0, platelet count is 175, INR is 1.1. Sodium 142, potassium 4.0, BUN is 15, creatinine 0.97. PREOPERATIVE WORKUP: STS score 4.3%. He is [place] Heart Association Functional Class III. BMI is 26.3. He is 2/4 frailty score. Electrocardiogram shows sinus rhythm, pulmonary function test performed on 01/14/2018 reveals FEV1 of 1.45 consistent with moderate restrictive disease. Echocardiogram from 08/31/2017 shows a jet velocity of 4.62 meters per second, mean gradient of 66 mmHg, aortic valve area of 0.66 cm2. Ejection fraction between 50 and 55 percent. There is mild to moderate mitral and tricuspid regurgitation with mild aortic valve insufficiency. Cardiac catheterization performed on 01/14/2018 reveals severe chip[place]wa-cree 3-vessel coronary disease with 3 of 3 patent coronary bypass grafts. Computed tomography analysis on 01/14/2018 reveals a short annulus diameter 22.8 mm long, annulus diameter of 27.7 mm with a perimeter of 79.8 mm. His sinus of Valsalva diameter is 32.7 mm with the sinotubular junction diameter of 27.8 mm. Left coronary height 11.9 mm. Right coronary height 16.2 mm. He has minimal luminal diameter in the right iliac system of 7.4 mm and the left of 5.3 mm. ASSESSMENT: 1. Severe aortic valve stenosis. 2. History of coronary disease with prior coronary artery bypass surgery, anemia, hypertension, hyperlipidemia, transient ischemic attack and dementia. The patient was evaluated by both Dr. Knight and Dr. Carlos who felt him to be a high surgical risk for traditional aortic valve replacement. PLAN: We will plan for a transcatheter aortic valve replacement using a Medtronic, 29 mm Evolut R bioprosthetic valve. We will approach from the right common femoral artery. Risks, benefits and alternatives were discussed with the patient. The patient understood and consented to proceed. Armando Ron MD ROLO/DL , 07:27 AM , 07:53 AM
[2018-02-16] MEDS ORDERED: EPINEPHrine HCL (1:10,000) 1 MG/10 ML SYRINGE ONE (08:41)
[2018-02-16] MEDS ORDERED: IOHEXOL 350 MG/ML 100 ML BTL (for RAD DIAG) IVCONTRAST ONE (08:59)
[2018-02-16] MEDS ORDERED: SODIUM CHLOR 0.9% 1000 ML INJ 1,000 ML IV SCH (09:34)
[2018-02-16] MEDS ORDERED: BENZOCAINE-MENTHOL (SUGAR FREE) 15 MG-3.6 MG LOZENGE BUCCAL PRN (09:45)
[2018-02-16] MEDS ORDERED: MISC INFORMATION OTHER ONE (09:45)
[2018-02-16] MEDS ORDERED: DEXTROSE 50% IN WATER 50 ML VIAL(D50) IV PUSH PRN (09:45)
[2018-02-16] MEDS ORDERED: ACETAMINOPHEN 325 MG TAB PO PRN (09:45)
[2018-02-16] MEDS ORDERED: ATROPINE SULFATE 1 MG/ML VIAL IV PUSH PRN (09:45)
[2018-02-16] MEDS ORDERED: CLOPIDOGREL 300 MG TAB PO ONE (09:45)
--- NOTE | 2018-02-16 09:50 | PD.OP ---
cc: Heaven Carlos MD; Armando Ron MD Operative Report Date of Surgery: Feb 16, 2018 Preoperative Diagnosis: (1) Diastolic heart failure (2) Aortic stenosis Postoperative Diagnosis: same Procedure: Transcatheter aortic valve replacment with a 29 Evolut R tissue valve Balloon aortic valvuloplasty with a 24 x 6 True Balloon Bilateral femoral arterial access with Perclose closure on right Left femoral venous access Aortography Fluoroscopy Anesthesia: Dr. Moon Surgeon: Heaven Carlos Co-surgeon - Dr. Ron Administration Intern(s): Dr. Knight Operation and Findings: The risks, benefits, complications, treatment options, and expected outcomes were discussed with the patient. The possibilities of reaction to medication, pulmonary aspiration, perforation of viscus, bleeding, recurrent infection, the need for additional procedures, failure to diagnose a condition, and creating a complication requiring transfusion or operation were discussed with the patient. The patient concurred with the proposed plan, giving informed consent. The site of surgery properly noted/marked. The patient was taken to hybrid operating room, identified as Az Sy and the procedure verified as Transcatheter Aortic Valve Replacement. A Time Out was held and the above information confirmed. Standard monitoring lines and Lucio catheter were placed. General anesthesia was induced. The patient was prepped and draped in a sterile fashion. Initially, left femoral arterial and venous access was acquired and 5F sheaths were placed in each vessel using a Seldinger percutaneous technique. The details of this procedure were dictated under separate note by cardiology. Once a pigtail catheter was positioned in the aortic annulus and a temporary transvenous pacemaker wire was placed in the right ventricular apex and tested, the right femoral artery was accessed using a needle followed by a guidewire under fluoroscopic guidance. The patient was heparinized and 2 Perclose devices deployed for later closure. Serial dilators were used to dilate the right femoral artery to 16 [place] caliber. A 16F Cook sheath was then inserted up to the distal abdominal aorta under fluoroscopic guidance. Arch aortography was performed to define the implant view. A balloon aortic valvuloplasty was then performed using a 24 x 6 True balloon with the patient being paced at 180 beats per minute. A 29 Evolut R transcatheter aortic valve was then positioned in the annulus and deployed with the patient being paced at 120 beats per minute. Following deployment, the valve apparatus was withdrawn and arch aortography and CAROLINE were performed to assess the valve. The valve had no significant perivalvular leaks. Gradients were then measured and the sheath was removed. Perclose sutures were secured with good hemostasis. Protamine was administered. Sterile dressings were placed. At the end of the operation , all sponge, instruments, and needle counts were correct. The patient was transferred to the CVICU in stable condition. Findings: Uneventful deployment of valve. Implants: 29 Evolut R valve Complications: none Disposition: to CVICU in stable condition Heaven Carlos MD Feb 16, 2018 09:50
--- NOTE | 2018-02-16 10:02 | MA ---
cc: Armando Ron MD DATE: 02/16/2018 PROCEDURE: Transcatheter aortic valve replacement. CUSTODIAL MAINTENANCE WORKER: Armando Ron MD [facility] LABORATORY TECHNICIAN: Heaven Carlos MD CO-SURGICAL BLOOD BANK LABORATORY TECHNICIAN: Ashli Knight MD PROCEDURES PERFORMED: 1. Fluoroscopy with interpretation. 2. Transesophageal echocardiogram. 3. Temporary transvenous pacemaker placement. 4. Aortic balloon valvuloplasty. 5. Ascending aortography. 6. Transcatheter aortic valve replacement with Medtronic Evolut R 29 mm bioprosthetic aortic valve. METHOD: The risks, benefits, and alternatives were discussed with the patient. The patient understood and consented to the procedure. The patient was brought to the catheterization lab, placed on the catheterization table. Bilateral groins were prepped and draped in sterile fashion. The left groin was accessed and a 5-Uzbek, 11 cm sheath was placed in both the artery and the vein. The right femoral artery was also accessed under fluoroscopic and angiographic guidance and a micropuncture sheath was placed, followed by upsizing to an 8-Uzbek sheath and finally a 16-Uzbek sheath. Two Perclose devices were deployed in a preclosure manner. TRANSESOPHAGEAL ECHOCARDIOGRAM: Please see separate detailed report. TEMPORARY TRANSVENOUS PACEMAKER PLACEMENT: A balloon tipped 5-Uzbek temporary transvenous pacemaker was advanced through a right jugular venous sheath to the level of the right ventricular apex. Appropriate capture was confirmed and backup rate set. ASCENDING AORTOGRAPHY: Ascending aortography was performed with a 5-Uzbek pigtail catheter advanced into the noncoronary cusp and on left anterior oblique 1 and cranial 5 view, all 3 cusps were in alignment. Ascending aorta was not significantly dilated. AORTIC VALVULOPLASTY: A 5-Uzbek AL1 catheter was advanced over a J-wire through the left common femoral sheath to the level of the ascending aorta. A 0.035-inch Amplatz straight-tipped Super Stiff wire was then navigated across the aortic valve without difficulty into the left ventricle, AL catheter advanced into the left ventricle. A 0.035-inch, 260 cm J-wire was then advanced to the left ventricular apex, the AL1 catheter removed. A 5-Uzbek pigtail catheter was then advanced to the left ventricular apex and the J-wire removed. A 0.035-inch, 260-cm Confida Eco Power Solutionstronic wire was advanced to the left ventricular apex and the pigtail catheter removed. A 24 x 40 mm TRUE aortic valvuloplasty balloon was then advanced across the aortic valve. With rapid ventricular pacing at 180 beats per minute, aortic valvuloplasty was performed. Repeat transesophageal echocardiogram now showed moderate to severe aortic valve insufficiency. The patient remained hemodynamically stable. No pericardial effusion noted. TRANSCATHETER AORTIC VALVE REPLACEMENT: A 16-Uzbek Medtronic Evolut R device with incorporated sheath was then prepped, the right common femoral sheath removed with the wire in place and the Medtronic device sheath was then advanced under fluoroscopic guidance to the abdominal descending aorta. The device was then advanced up and over the arch and across the aortic valve under fluoroscopic and angiographic guidance. The device was then slowly deployed and released. Repeat transesophageal echocardiogram showed appropriate placement and deployment with mild paravalvular leak. Heparin was administered throughout the entire procedure to maintain appropriate anticoagulation. The patient tolerated the procedure well and wire was removed. The right groin was then Perclosed with good hemostasis and the left common femoral artery and vein were closed with a 5-Uzbek VASCADE devices with good hemostasis. INTRAOPERATIVE TRANSESOPHAGEAL ECHOCARDIOGRAM RESULTS: 1. Mean aortic valve gradient 5 mmHg. 2. Aortic valve area of 1.3 cm2. 3. There is mild paravalvular aortic regurgitation. CONCLUSIONS: 1. Successful transcatheter aortic valve replacement with 29 mm Evolut R bioprosthetic aortic valve. 2. Successful aortic valvuloplasty. 3. Successful utilization of transvenous temporary pacemaker. PLAN: The patient will be monitored closely for any post-procedural complications and extubated. We will wait for a neurologic recovery. We will watch closely for any bleeding. He has temporary transvenous pacemaker in place. There was no high degree block. We will consult Electrophysiology for their opinion. We anticipate, without any post-procedural complications, for a 1-2 day hospital stay. MD ROLO Rios/JONATAN , 09:34 AM , 10:01 AM
[2018-02-16] MEDS ORDERED: IOHEXOL 350 MG/ML 100 ML BTL (for Cath Lab) OTHER ONE (10:43)
--- NOTE | 2018-02-16 10:47 | RADRPT ---
EXAM DATE: 02/16/2018 10:32 AM EDT AGE/SEX: 87 years / Male INDICATIONS: S?P TAVR. Heart valve surgery. CLINICAL DATA: This is the patient's subsequent encounter. Patient reports that signs and symptoms h ave been present for 3 days and indicates a pain score of 0/10. MEDICAL/SURGICAL HISTORY: Hypertension. Gastroesophageal reflux disease. Aortic valve stenosis , restrictive lung disease. CABG. Left knee arthroscopy. Right carotid endarterectomy. COMPARISON: [facility] – [place], CHEST SINGLE AP, 01/14/2018. . FINDINGS: There is a left sided catheter with tip in the deep right atrium. Stable median sternotomy wires and postsurgical features of prior cardiac surgery. Minimal bibasilar airspace disease similar to prior e xam. No significant new focal pleural or parenchymal opacities. Cardiomegaly mediastinal contours are stable. Remainder of the exam is unchanged. CONCLUSION: 1. Left-sided venous catheter with tip in the deep right atrium. 2. Stable examination with persistent minimal bibasilar airspace disease, likely atelectasis. 3. Cardiomegaly. Electronically signed by: Pedro Enriquez MD 02/16/2018 10:45 AM EDT
[2018-02-16] MEDS ORDERED: PROPOFOL 200 MG/20 ML AMP IV ONE (12:00)
[2018-02-16] MEDS ORDERED: LACTATED RINGER'S 1000 ML INJ 1,000 ML IV ONE (12:00)
[2018-02-16] MEDS ORDERED: SODIUM CHLORID 0.9% 500 ML INJ 1,000 ML IV ONE (12:00)
[2018-02-16] MEDS ORDERED: GLYCOPYRROLATE 1 MG/5 ML SYRINGE IV PUSH ONE (12:00)
[2018-02-16] MEDS ORDERED: NEOSTIGMINE 5 MG/5 ML SYRINGE IV PUSH ONE (12:00)
[2018-02-16] MEDS ORDERED: ROCURONIUM INJ 50 MG/5 ML SYRINGE IV PUSH ONE (12:00)
[2018-02-16] MEDS ORDERED: SODIUM CHLOR 0.9% 250 ML INJ 250 ML IV ONE (12:00)
[2018-02-16] MEDS ORDERED: LIDOCAINE HCL 1% PF 5 ML SYRINGE OTHER ONE (12:00)
[2018-02-16] MEDS ORDERED: PHENYLEPH/NS 1000 MCG/10 ML SYR IV ONE (12:00)
--- NOTE | 2018-02-16 13:38 | EKG ---
Date Performed: 02/16/2018 Time Performed: 10:39:50 PTAGE: 87 years EKG: Sinus rhythm Left bundle branch block Abnormal ECG PREVIOUS TRACING : 02/16/2018 10.39 DOCTOR: Armando Ron Interpretating Date/Time 02/16/2018 13:36:13
--- NOTE | 2018-02-16 13:50 | EKG ---
Date Performed: 02/16/2018 Time Performed: 06:22:34 PTAGE: 87 years EKG: Sinus rhythm . Inferior/lateral ST-T changes are nonspecific Borderline ECG PREVIOUS TRACING : 01/14/2018 14.29 DOCTOR: Armando Ron Interpretating Date/Time 02/16/2018 13:48:33
[2018-02-16] MEDS: SODIUM CHLOR 0.9% 1000 ML 1,000 ML IV SCH ×2 (14:00→22:00)
[2018-02-16] MEDS ORDERED: FUROSEMIDE 20 MG TAB PO SCH (18:00)
--- NOTE | 2018-02-16 18:21 | MB ---
cc: Ysabel Prieto MD,Ysabel Calero,Rachel Purcell,Dev Ron,Armando Ashby MD DATE: 02/16/2018 REASON FOR CONSULTATION: Status post TAVR for evaluation for conduction disease. HISTORY OF PRESENT ILLNESS: Mr. Sy is an 87-year-old gentleman with history of aortic stenosis, high blood pressure, symptomatic coronary artery disease, coronary artery bypass grafting and hyperlipidemia who was admitted for transaortic valve replacement. Procedure was successful. Prior to surgery, the valve area was around 0.66 cm2. Post procedure, the patient developed a left bundle branch block. I was consulted for further evaluation and management. The chart was reviewed. The patient was evaluated. ALLERGIES: STATINS, BANANA, EGGS, MILK AND WHEAT. SOCIAL HISTORY: Negative for smoking and drinking. FAMILY HISTORY: Noncontributory to his current medical condition. CURRENT MEDICATIONS: 1. Ancef 2. Plavix. 3. Aspirin 4. Metformin was on hold 5. Namenda. 6. Metoprolol. 7. Potassium. 8. Flomax. REVIEW OF SYSTEMS: The patient currently referred no chest pain no chest discomfort. No fever. PHYSICAL EXAMINATION: GENERAL: Alert, fully oriented. VITAL SIGNS: His blood pressure 115/41, pulse 73, respiratory rate 18. LUNGS: Ventilated. CARDIOVASCULAR: S1, S2. No gallop. No murmur. ABDOMEN: Soft. No mass. EXTREMITIES: No edema. CARDIOLOGY STUDIES: Electrocardiogram prior to TAVR was sinus rhythm with diffuse ST changes. Currently, electrocardiogram indicates sinus rhythm, left bundle branch block. LABORATORY DATA: Hemoglobin 12.1, white blood cells 6.1. Potassium is 4.0, creatinine 0.97. Troponin 1.87. ASSESSMENT AND RECOMMENDATIONS: Mr. Sy currently is stable. He is status post TAVR. He has a left bundle branch block that was new. The troponin 1.87 was from 11/30/2017. The gentleman has a conduction issue. Apparently, the left bundle was damaged during the procedure. That put the patient at very high for AV block. I had a long conversation with him and his family as well as Dr. Camilo Morrison. The gentleman is going to need an electrophysiology study and possible permanent pacemaker insertion. The risks, the nature and the benefit of the procedure are clearly stated to them. Risks include pneumothorax, cardiac perforation, stroke and even . They understood and agreed to proceed. Procedure will be performed. MD TRI العلي/ , 05:34 PM , 06:19 PM
[2018-02-16] MEDS: TAMSULOSIN HCL 0.4 MG CAP PO SCH (21:38)
[2018-02-16] MEDS: MEMANTINE HCL 5 MG TAB PO SCH (21:40)
--- NOTE | 2018-02-16 22:01 | PD.PROCEDR ---
Procedure Note Procedure Procedure: Transesophageal Echocardiography Diagnosis: Severe aortic stenosis Indications: Perioperative planning for transcatheter aortic valve replacement Consent: Obtained Anesthesia: General endotracheal anesthesia Description of the Procedure: The patient was sedated and mechanically ventilated. The echo probe was inserted easily and without resistance. At the conclusion of the procedure, the echo probe was removed. Please see detailed echocardiogram report for formal findings. Preliminary Findings (not confirmed): Pre-procedure: 1) grossly preserved biventricular function 2) severe aortic stenosis 3) no evidence of intra-atrial shunting by color flow Doppler 4) no pericardial effusion Post-procedure: 1) s/p successful placement of transcatheter aortic valve 2) no evidence of bioprosthetic valve stenosis 3) [id number] perivalvular leak adjacent to the noncoronary cusp 4) no pericardial effusion These findings were discussed with Dr. Ron intra-operatively. please see his formal dictation for additional details. The patient tolerated the procedure well with no hemodynamic instability. There were no immediate complications noted. There was minimal EBL. I personally performed the procedure. Ronnie Morrison MD Feb 16, 2018 22:01
--- NOTE | 2018-02-16 22:08 | PD.CONS ---
HPI Service Critical Care Medicine Consult Requested By Dr. gilmore Reason for Consult Perioperative management of medical comorbidities Primary Care Physician Dev Purcell MD History of Present Illness This is an 87-year-old male with a history of aortic stenosis, coronary disease , diastolic heart failure, anemia who presents for transcatheter aortic valve replacement electively. He underwent uncomplicated procedure via common iliac access. He arrives to the CVICU in stable and extubated condition. Due to his somnolence as he is arousing from anesthesia, no additional information is available for him. Limited review systems is negative for chest pain, shortness of breath, nausea, vomiting, headache, sore throat. Review of Systems ROS Limitations: Clinical Condition, Altered Mental Status Ears, nose, mouth, throat: DENIES: Throat pain Respiratory: DENIES: Shortness of breath Cardiovascular: DENIES: Chest pain Gastrointestinal: DENIES: Nausea, Vomiting Neurologic: DENIES: Headache ROS Arousing from anesthesia Past Family Social History Allergies: Coded Allergies: [id number] Reductase Inhibitor (Verified Allergy, Severe, ACHES, 02/16) banana (Verified Allergy, Severe, 02/16/18) egg (Verified Allergy, Severe, 02/16/18) milk (Verified Allergy, Severe, 02/16/18) wheat (Verified Allergy, Severe, 02/16/18) Past Medical History Severe symptomatic aortic stenosis Coronary artery disease status post coronary artery bypass grafting Congestive heart failure with preserved EF Anemia Ataxic gait Degenerative joint disease Hypertension Hyperlipidemia Recent left lower lobe pneumonia History of prior TIAs Dementia Past Surgical History Left knee arthroscopy Back surgery by Dr. Varela in 2015 L3/4 spinal fusion CABG 3 in 2002 Bilateral cataract surgery Colonoscopy Skin cancer removal from his forehead EGD Cervical epidural injections Right carotid endarterectomy Tonsillectomy Reported Medications Tamsulosin (Tamsulosin HCl) 0.4 Mg Cap 0.4 Mg HS Potassium Chloride ER (Potassium Chloride) 10 Meq Cap 10 Meq PO DAILY Omeprazole 40 Mg Cap 40 Mg DAILY Memantine 5 Mg Tab 5 Mg PO BID Furosemide 20 Mg Tab 20 Mg PO BID Fluticasone Nasal [place] 50 Mcg/Act Naspr 50 Mcg EACH NARE BID 50 mcg/spray Aspirin 81 Mg Chew 81 Mg CHEW DAILY Proair Hfa (Albuterol Sulfate) 90 Mcg Hfa.aer.ad Active Ordered Medications See MAR Family History Reviewed the chart and found to be noncontributory to his acute illness Social History Former smoker, denies EtOH or other drugs Physical Exam Vital Signs Vital Signs Date Time Temp Pulse Resp B/P (MAP) Pulse Ox O2 Delivery O2 Flow Rate FiO2 02/16/18 21:25 99 Nasal Cannula 2.00 02/16/18 21:08 100 Nasal Cannula 3.00 02/16/18 15:00 99 Nasal Cannula 3.00 02/16/18 15:00 80 02/16/18 15:00 98.2 02/16/18 15:00 98.2 73 16 125/60 (81) 99 115/41 (65) 02/16/18 11:00 99 Nasal Cannula 3.00 02/16/18 11:00 95.3 68 16 137/62 (87) 99 121/49 (73) 02/16/18 11:00 70 02/16/18 09:40 94.4 02/16/18 09:30 73 02/16/18 09:30 94.4 76 16 128/66 (86) 99 140/52 (81) 02/16/18 09:30 76 02/16/18 09:30 99 Nasal Cannula 3.00 02/16/18 09:23 97 Nasal Cannula 3.00 02/16/18 06:11 98.1 76 18 107/64 (78) 100 Physical Exam GENERAL: Frail elderly male lying in bed, arousing from anesthesia HEENT: Normocephalic. Atraumatic. Pupils equal, round, reactive, conjugate. Mucous membranes are moist NECK: Trachea is midline. There is no JVD. right IJ introducer sheath with transvenous pacer in place, site is clean and dry, dressing intact. CHEST: unlabored. equal chest rise. nc o2. CARDIOVASCULAR: normal rate, regular rhythm. Transvenous pacer is set VVI at a backup rate of 50. not currently paced. ABDOMEN: Soft, nontender, nondistended. No guarding. MUSCULOSKELETAL: Pulses 2+. No peripheral edema. bilateral groin sites are clean and dry, no evidence of hematoma, dressing intact. distal LE pulses are Dopplerable. NEUROLOGICAL: RASS -2. Arousing from anesthesia. follows commands. moves all extremities. no focal deficits. Assessment and Plan Assessment and Plan Assessment: 87-year-old male postop day 0 status post transcatheter valve replacement. Admit ICU for close monitoring. s/p TAVR 02/16 via common iliac access - anticoagulation per Dr. Gilmore - [facility] - close uop monitoring - flat, oob after this - advance diet as tolerated - frequent neurovascular checks Hypertension - add back home antihypertensives as needed - goal sbp < 180 Hyperlipidemia - restart home statin BPH - restart home flomax Dementia - restart home memantine GERD - restart ppi Coronary artery disease - restart home ASA congestive heart failure with preserved EF - hold lasix today - would plan on restarting home lasix in AM. admit to ICU. Critical care medicine will continue to follow patient while he remains in the CVICU. Ronnie Morrison MD Feb 16, 2018 22:08
[2018-02-16] MEDS ORDERED: POTASSIUM CHLORIDE 25 MEQ EFFERVESCENT TAB PO PRN (22:15)
[2018-02-16] MEDS ORDERED: POTASSIUM CHLOR 40 MEQ PREMIX 100 ML IV PRN ×2 (22:15)
[2018-02-16] MEDS ORDERED: POTASSIUM PHOSPHATE MONOBASIC 500 MG TAB PO PRN (22:15)
[2018-02-16] MEDS ORDERED: SODIUM PHOSPHATE INJ 30 MMOL in SODIUM CHLOR 0.9% 250 ML INJ 240 ML IV PRN (22:15)
[2018-02-16] MEDS ORDERED: POTASSIUM CHLOR 20 MEQ PREMIX 100 ML IV PRN ×2 (22:15)
[2018-02-16] MEDS ORDERED: MAGNESIUM SULFATE INJ 2 GM in SODIUM CHLORIDE 0.9% INJ 96 ML IV PRN (22:15)
[2018-02-16] MEDS ORDERED: RESP: ALBUTEROL 2.5 MG/IPRATROPIUM 0.5 MG NEB (PRN) INH (22:15)
[2018-02-16] MEDS ORDERED: POTASSIUM PHOSPHATE MONOBASIC 500 MG TAB PO/TUBE PRN (22:15)
[2018-02-16] MEDS ORDERED: POTASSIUM PHOSPHATE INJ 30 MMOL in SODIUM CHLOR 0.9% 250 ML INJ 250 ML IV PRN (22:15)
[2018-02-16] MEDS ORDERED: MAGNESIUM OXIDE 400 MG TAB PO PRN (22:15)
[2018-02-16] MEDS ORDERED: MAGNESIUM SULFATE INJ 4 GM in SODIUM CHLORIDE 0.9% INJ 92 ML IV PRN (22:15)
[2018-02-17] VITALS (7 sets, daily range): BP systolic 120–145; BP diastolic 54–63; PULSE 78–94; RESP 16–18; TEMP 97.4–98.2; O2SAT 94–99
[2018-02-17] MEDS: SODIUM CHLOR 0.9% 1000 ML 1,000 ML IV SCH ×3 (06:00→22:00)
[2018-02-17 06:20] LABS: HEMATOCRIT 30.5 % (39.0-51.0); HEMOGLOBIN 10.6 GM/DL (13.0-17.0); MEAN CELL VOLUME 91.3 FL (80.0-100.0); MEAN CORPUSCULAR HEMOGLOBIN 31.6 PG (27.0-34.0); MEAN CORPUSCULAR HGB CONC 34.7 % (32.0-36.0); MEAN PLATELET VOLUME 8.6 FL (7.0-11.0); PLATELET COUNT 145 TH/MM3 (150-450); RED BLOOD COUNT 3.34 MIL/MM3 (4.50-5.90); RED CELL DISTRIBUTION WIDTH 14.3 % (11.6-17.2); WHITE BLOOD COUNT 9.6 TH/MM3 (4.0-11.0)
[2018-02-17 06:45] LABS: ALBUMIN 3.1 GM/DL (3.4-5.0); ALT (GPT) 14 U/L (12-78); AST (GOT) 18 U/L (15-37); BICARBONATE 22.2 MEQ/L (21.0-32.0); BLOOD UREA NITROGEN 20 MG/DL (7-18); CALCIUM 8.1 MG/DL (8.5-10.1); CHLORIDE 104 MEQ/L (98-107); CREATININE 0.75 MG/DL (0.60-1.30); GLOMERULAR FILTRATION RATE 98 ML/MIN (>89); GLUCOSE,RANDOM 107 MG/DL (74-106); SODIUM (NA) 137 MEQ/L (136-145)
[2018-02-17 06:48] LABS: ALKALINE PHOSPHATASE 65 U/L (45-117); TOTAL PROTEIN 5.8 GM/DL (6.4-8.2)
--- NOTE | 2018-02-17 07:33 | PD.CARD.PN ---
Subjective Subjective Remarks doing great no complaints groing benign Objective Medications Current Medications Medications (Trade) Dose Ordered Sig/Sung Route Start Time Stop Time Status Last Admin Sodium Chloride 1,000 ml @ 125 mls/hr Q8H IV 02/16/18 06:00 Cefazolin Sodium/ Dextrose 50 ml @ 100 mls/hr [employer] PRN IV 02/16/18 06:00 02/19/18 05:59 02/16/18 08:10 (Betadine 5% Antisepsis Kit) 1 applic [employer] PRN EACH NARE 02/16/18 06:00 02/19/18 05:59 (Bactroban Nasal 2% Oint) 1 applic [employer] PRN EACH NARE 02/16/18 06:00 02/19/18 05:59 (Chlorhexidine 2% Cloth) 3 pack [employer] PRN TOPICAL 02/16/18 06:00 02/19/18 05:59 02/16/18 06:12 Lactated Ringer's 1,000 ml @ 30 mls/hr Q24H PRN IV 02/16/18 06:00 02/19/18 05:59 Sodium Chloride 500 ml @ 30 mls/hr [id number] PRN IV 02/16/18 06:00 02/19/18 05:59 (Lopressor) 25 mg [employer] PRN PO 02/16/18 06:00 02/19/18 05:59 (Betadine 5% Antisepsis Kit) 1 applic [employer] PRN EACH NARE 02/16/18 06:00 02/19/18 05:59 02/16/18 06:12 (Chlorhexidine 2% Cloth) 3 pack [employer] PRN TOPICAL 02/16/18 06:00 02/19/18 05:59 (NovoLIN R INJ) See Protocol Table ... [employer] PRN SQ 02/16/18 06:00 02/19/18 05:59 (Tylenol) 650 mg Q4H PRN PO 02/16/18 09:45 02/17/18 09:44 (Cepacol Extra Neva (Sugar Free)) 1 lozenge Q3H PRN BUCCAL 02/16/18 09:45 02/17/18 09:44 (Atropine Inj) 0.5 mg UNSCH PRN IV PUSH 02/16/18 09:45 02/17/18 09:44 (Aspirin Chew) 81 mg DAILY PO 02/17/18 09:00 (Plavix) 75 mg DAILY PO 02/17/18 09:00 (D50w (Vial) Inj) 50 ml UNSCH PRN IV PUSH 02/16/18 09:45 (Ferrous Sulfate) 325 mg DAILY PO 02/17/18 09:00 (Namenda) 5 mg BID PO 02/16/18 21:00 02/16/18 21:40 (KCl) 10 meq DAILY PO 02/17/18 09:00 (Flomax) 0.4 mg HS PO 02/16/18 21:00 02/16/18 21:38 (Protonix) 40 mg DAILY PO 02/17/18 09:00 Potassium Chloride 100 ml @ 50 mls/hr Q2H PRN IV 02/16/18 22:15 Potassium Chloride 100 ml @ 50 mls/hr Q2H PRN IV 02/16/18 22:15 (K-Lyte Cl Eff) 50 meq UNSCH PRN PO 02/16/18 22:15 Potassium Chloride 100 ml @ 25 mls/hr UNSCH PRN IV 02/16/18 22:15 Potassium Chloride 100 ml @ 50 mls/hr Q2H PRN IV 02/16/18 22:15 Magnesium Sulfate 4 gm/Sodium Chloride 100 ml @ 50 mls/hr UNSCH PRN IV 02/16/18 22:15 (Mag-Ox) 800 mg UNSCH PRN PO 02/16/18 22:15 Magnesium Sulfate 2 gm/Sodium Chloride 100 ml @ 50 mls/hr UNSCH PRN IV 02/16/18 22:15 (K-Phos) 2,000 mg Q4H PRN PO 02/16/18 22:15 Sodium Phosphate 30 mmol/Sodium Chloride 250 ml @ 42 mls/hr UNSCH PRN IV 02/16/18 22:15 (K-Phos) 2,000 mg UNSCH PRN PO/TUBE 02/16/18 22:15 Potassium Phosphate 30 mmol/ Sodium Chloride 260 ml @ 42 mls/hr UNSCH PRN IV 02/16/18 22:15 (Duoneb Neb) 1 ampule Q2HR NEB PRN INH 02/16/18 22:15 (Lasix) 20 mg DAILY PO 02/17/18 09:00 UNV (Prinivil) 5 mg DAILY PO 02/17/18 09:00 UNV Vital Signs / I&O Vital Signs Date Time Temp Pulse Resp B/P (MAP) Pulse Ox O2 Delivery O2 Flow Rate FiO2 02/17/18 06:00 97.9 85 16 145/63 (90) 97 02/17/18 03:00 92 02/17/18 03:00 81 02/17/18 03:00 93 Room Air 02/17/18 01:00 92 02/16/18 23:52 96 Room Air 02/16/18 23:33 92 02/16/18 23:00 97.9 92 16 122/67 (85) 96 131/48 (75) 02/16/18 23:00 92 02/16/18 22:00 96 Room Air 02/16/18 21:25 99 Nasal Cannula 2.00 02/16/18 21:08 100 Nasal Cannula 3.00 02/16/18 21:00 99 Nasal Cannula 1.00 02/16/18 20:00 99 Nasal Cannula 3.00 02/16/18 20:00 69 02/16/18 19:00 69 02/16/18 19:00 97.6 69 16 144/62 (89) 99 142/40 (74) 02/16/18 15:00 99 Nasal Cannula 3.00 02/16/18 15:00 80 02/16/18 15:00 98.2 02/16/18 15:00 98.2 73 16 125/60 (81) 99 115/41 (65) 02/16/18 11:00 99 Nasal Cannula 3.00 02/16/18 11:00 95.3 68 16 137/62 (87) 99 121/49 (73) 02/16/18 11:00 70 02/16/18 09:40 94.4 02/16/18 09:30 73 02/16/18 09:30 94.4 76 16 128/66 (86) 99 140/52 (81) 02/16/18 09:30 76 02/16/18 09:30 99 Nasal Cannula 3.00 02/16/18 09:23 97 Nasal Cannula 3.00 I/O 02/16/18 02/16/18 02/16/18 02/17/18 02/17/18 02/17/18 07:00 15:00 23:00 07:00 15:00 23:00 Intake Total 700 ml 725 ml 360 ml Output Total 300 ml 525 ml 498 ml Balance 400 ml 200 ml -138 ml Intake Oral 725 ml 360 ml Other 700 ml Output Urine Total 100 ml 525 ml 495 ml Stool Total 0 ml 3 ml Estimated Blood Loss 200 ml Physical Exam HEAD: Normocephalic. EYES: No scleral icterus. No injection or drainage. NECK: Supple, trachea midline. No JVD or lymphadenopathy. CARDIOVASCULAR: Regular rate and rhythm without murmurs, gallops, or rubs. RESPIRATORY: Breath sounds equal bilaterally. No accessory muscle use. GASTROINTESTINAL: Abdomen soft, non-tender, nondistended. MUSCULOSKELETAL: No cyanosis, or edema. BACK: Nontender without obvious deformity. No CVA tenderness. Laboratory Laboratory Tests Test 02/17/18 05:30 White Blood Count 9.6 TH/MM3 Red Blood Count 3.34 MIL/MM3 Hemoglobin 10.6 GM/DL Hematocrit 30.5 % Mean Corpuscular Volume 91.3 FL Mean Corpuscular Hemoglobin 31.6 PG Mean Corpuscular Hemoglobin Concent 34.7 % Red Cell Distribution Width 14.3 % Platelet Count 145 TH/MM3 Mean Platelet Volume 8.6 FL Blood Urea Nitrogen 20 MG/DL Creatinine 0.75 MG/DL Random Glucose 107 MG/DL Total Protein 5.8 GM/DL Albumin 3.1 GM/DL Calcium Level 8.1 MG/DL Alkaline Phosphatase 65 U/L Aspartate Amino Transf (AST/SGOT) 18 U/L Alanine Aminotransferase (ALT/SGPT) 14 U/L Total Bilirubin 1.0 MG/DL Sodium Level 137 MEQ/L Potassium Level 3.9 MEQ/L Chloride Level 104 MEQ/L Carbon Dioxide Level 22.2 MEQ/L Anion Gap 11 MEQ/L Estimat Glomerular Filtration Rate 98 ML/MIN Imaging Last Impressions Chest X-Ray 02/16/18 0000 Signed Impressions: CONCLUSION: 1. Left-sided venous catheter with tip in the deep right atrium. 2. Stable examination with persistent minimal bibasilar airspace disease, like ly atelectasis. 3. Cardiomegaly. Assessment and Plan Assessment and Plan aortic stenosis - s/p transcatheter aortic valve replacement. 2d echo today. asa plavix appreciate EP input. plan for EPS study today due to IVCD +/- PPM start low dose ACEi Armando Ron MD Feb 17, 2018 07:33
[2018-02-17] MEDS ORDERED: ASPIRIN 81 MG CHEW TAB CHEW SCH (09:00)
[2018-02-17] MEDS: FUROSEMIDE 20 MG TAB PO SCH (09:16)
[2018-02-17] MEDS: FERROUS SULFATE 325 MG (65 MG ELEMENTAL IRON) TAB PO SCH (09:16)
[2018-02-17] MEDS: MEMANTINE HCL 5 MG TAB PO SCH ×2 (09:17→23:16)
[2018-02-17] MEDS: PANTOPRAZOLE SOD 40 MG DELAYED RELEASE TAB PO SCH (09:17)
[2018-02-17] MEDS: CLOPIDOGREL 75 MG TAB PO SCH (09:17)
[2018-02-17] MEDS: LISINOPRIL 5 MG TAB PO SCH (09:17)
[2018-02-17] MEDS: POTASSIUM CHLORIDE 10 MEQ CAP PO SCH (09:17)
[2018-02-17] MEDS: ASPIRIN 81 MG CHEW TAB PO SCH (09:17)
[2018-02-17] MEDS ORDERED: NS 500 ML (EXCEL BAG) INJ 1,000 ML IV ONE ×2 (12:00)
[2018-02-17] MEDS ORDERED: PHENYLEPH/NS 1000 MCG/10 ML SYR IV ONE (12:00)
[2018-02-17] MEDS ORDERED: PROPOFOL 200 MG/20 ML AMP IV ONE (12:00)
[2018-02-17] MEDS ORDERED: SODIUM CHLORIDE 0.9% 10 ML VIAL IV ONE (12:00)
[2018-02-17] MEDS ORDERED: ePHEDrine/NS 25 MG/5 ML SYRINGE IV ONE (12:00)
[2018-02-17] MEDS ORDERED: ONDANSETRON HCL 4 MG/2 ML VIAL IV ONE (12:00)
[2018-02-17] MEDS ORDERED: LIDOCAINE HCL 1% PF 5 ML SYRINGE OTHER ONE (12:00)
--- NOTE | 2018-02-17 12:05 | ECHRPT ---
Indication: VEGETATIONS CONCLUSIONS Normal left ventricular size and wall thickness. The left ventricular systolic function is normal wi th an estimated ejection fraction in the range of 60-65%. Left ventricular diastolic function parameters a re normal. Normally functioning transcatheter aortic valve replacement Trace aortic valve regurgitation (paravalvular leak) No aortic valve stenosis. BP: / HR: Rhythm: Sinus MEASUREMENTS (Male / Female) Normal Values Technical Quality:Good DOPPLER AV Peak Velocity 159.0 cm/s AV Peak Gradient 10.1 mmHg MV Peak Velocity 144.0 cm/s MV Peak Gradient 8.3 mmHg MV Mean Velocity 85.5 cm/s MV Mean Gradient 4.0 mmHg FINDINGS LEFT VENTRICLE Normal left ventricular size and wall thickness. The left ventricular systolic function is normal wi th an estimated ejection fraction in the range of 60-65%. Left ventricular diastolic function parameters a re normal. RIGHT VENTRICLE Normal right ventricular size and systolic function. LEFT ATRIUM The left atrial size is normal. RIGHT ATRIUM The right atrial size is normal. ATRIAL SEPTUM Normal atrial septal thickness without atrial level shunting by limited color doppler interrogation. AORTA The aortic root and proximal ascending aorta are normal in size on limited imaging. MITRAL VALVE Structurally normal mitral valve. No mitral valve stenosis or regurgitation. AORTIC VALVE Normally functioning transcatheter aortic valve replacement Trace aortic valve regurgitation (paravalvular leak) No aortic valve stenosis. TRICUSPID VALVE Structurally normal tricuspid valve. No tricuspid valve stenosis or regurgitation. PULMONARY VALVE The pulmonary valve is not well visualized. VESSELS The inferior vena cava is normal in size. PERICARDIUM No pericardial effusion. Armando Ron MD, FACC (Electronically Signed) Final Date:17 February 2018 12:04
--- NOTE | 2018-02-17 12:10 | PD.CAR.PN ---
CVT Progress Note CVT: POD #: 1 Subjective/Hospital Course: Doing well, no complaints. Possible EP study and PPM today Objective: Vital Signs Date Time Temp Pulse Resp B/P (MAP) Pulse Ox O2 Delivery O2 Flow Rate FiO2 02/17/18 11:00 78 02/17/18 11:00 78 02/17/18 11:00 98.2 78 18 120/54 (76) 94 02/17/18 11:00 94 Room Air 02/17/18 08:30 94 Nasal Cannula 2.00 02/17/18 07:00 97.4 87 18 135/58 (83) 94 Arterial Line 02/17/18 07:00 94 02/17/18 07:00 93 Room Air 02/17/18 07:00 92 02/17/18 06:00 97.9 85 16 145/63 (90) 97 02/17/18 03:00 92 02/17/18 03:00 81 02/17/18 03:00 93 Room Air 02/17/18 01:00 92 02/16/18 23:52 96 Room Air 02/16/18 23:33 92 02/16/18 23:00 97.9 92 16 122/67 (85) 96 131/48 (75) 02/16/18 23:00 92 02/16/18 22:00 96 Room Air 02/16/18 21:25 99 Nasal Cannula 2.00 02/16/18 21:08 100 Nasal Cannula 3.00 02/16/18 21:00 99 Nasal Cannula 1.00 02/16/18 20:00 99 Nasal Cannula 3.00 02/16/18 20:00 69 02/16/18 19:00 69 02/16/18 19:00 97.6 69 16 144/62 (89) 99 142/40 (74) 02/16/18 15:00 99 Nasal Cannula 3.00 02/16/18 15:00 80 02/16/18 15:00 98.2 02/16/18 15:00 98.2 73 16 125/60 (81) 99 115/41 (65) Labs: Laboratory Tests Test 02/17/18 05:30 White Blood Count 9.6 TH/MM3 (4.0-11.0) Red Blood Count 3.34 MIL/MM3 (4.50-5.90) Hemoglobin 10.6 GM/DL (13.0-17.0) Hematocrit 30.5 % (39.0-51.0) Mean Corpuscular Volume 91.3 FL (80.0-100.0) Mean Corpuscular Hemoglobin 31.6 PG (27.0-34.0) Mean Corpuscular Hemoglobin Concent 34.7 % (32.0-36.0) Red Cell Distribution Width 14.3 % (11.6-17.2) Platelet Count 145 TH/MM3 (150-450) Mean Platelet Volume 8.6 FL (7.0-11.0) Blood Urea Nitrogen 20 MG/DL (7-18) Creatinine 0.75 MG/DL (0.60-1.30) Random Glucose 107 MG/DL (74-106) Total Protein 5.8 GM/DL (6.4-8.2) Albumin 3.1 GM/DL (3.4-5.0) Calcium Level 8.1 MG/DL (8.5-10.1) Alkaline Phosphatase 65 U/L (45-117) Aspartate Amino Transf (AST/SGOT) 18 U/L (15-37) Alanine Aminotransferase (ALT/SGPT) 14 U/L (12-78) Total Bilirubin 1.0 MG/DL (0.2-1.0) Sodium Level 137 MEQ/L (136-145) Potassium Level 3.9 MEQ/L (3.5-5.1) Chloride Level 104 MEQ/L (98-107) Carbon Dioxide Level 22.2 MEQ/L (21.0-32.0) Anion Gap 11 MEQ/L (5-15) Estimat Glomerular Filtration Rate 98 ML/MIN (>89) Result Diagram: 02/17/18 0530 02/17/18 0530 Cardiovascular: RRR Pulmonary: CTA GI/: NABS Incision: Groin areas are clean and dry. Plan: Possible EP study and PPM today per Dr. Conner Olivares D/C tomorrow. Heaven Carlos MD Feb 17, 2018 12:10
--- NOTE | 2018-02-17 12:22 | ECHRPT ---
Indication: CONCLUSIONS severe aortic valve stenosis transcatheter aortic valve replacement no paravalvular leak BP: / HR: Rhythm: Technical Quality: Medications Complications Proc. Components The patient was brought to the diagnostic imaging area in a fasting state after o btaining an informed consent. The patient was premedicated with IV Versed and IV Fentanyl. The threader operator ior pharynx was sprayed with Cetacaine spray and the patient was administered viscous Xylocaine 2 %. The CAROLINE probe was passed into the posterior pharynx , mid-esophagus, distal esophagus, and gastric fundus. CAROLINE was performed at multiple levels. The patient tolerated the procedure well and there were no complications. The patient was transferred to the floor in satisfactory condition.. FINDINGS LEFT VENTRICLE Normal left ventricular size and wall thickness. The left ventricular systolic function is normal wi th an estimated ejection fraction in the range of 60-65%. Left ventricular diastolic function parameters a re normal. RIGHT VENTRICLE Normal right ventricular size and systolic function. LEFT ATRIUM The left atrial size is normal. RIGHT ATRIUM The right atrial size is normal. ATRIAL SEPTUM Normal atrial septal thickness without atrial level shunting by limited color doppler interrogation. AORTA The aortic root and proximal ascending aorta are normal in size on limited imaging. MITRAL VALVE Structurally normal mitral valve. No mitral valve stenosis or regurgitation. AORTIC VALVE severe aortic valve stenosis transcatheter aortic valve replacement no paravalvular leak TRICUSPID VALVE Structurally normal tricuspid valve. No tricuspid valve stenosis or regurgitation. VESSELS The inferior vena cava is normal in size. PULMONARY VALVE The pulmonary valve is not well visualized. PERICADIUM No pericardial effusion. Armando Ron MD, FACC (Electronically Signed) Final Date:17 February 2018 12:21
[2018-02-17] MEDS ORDERED: ISOPROTERENOL INJ PREMIX 50 ML IV ONE (18:39)
--- NOTE | 2018-02-17 18:49 | EKG ---
Date Performed: 02/17/2018 Time Performed: 05:45:22 PTAGE: 87 years EKG: Sinus rhythm with PVC(s). Rightward axis IV conduction defect Possible anterior infarct - age undetermined Left v entricular hypertrophy Inferior/lateral ST-T changes are probably due to ventricular hypertrophy Abno rmal ECG Since the PREVIOUS TRACING , no significant change noted PREVIOUS TRACIN02/16/2018 10.39 DOCTOR: Natividad Balderas Interpretating Date/Time 02/17/2018 18:46:40
[2018-02-17] MEDS ORDERED: HEPARIN-NS/PF INJ 1,000 ML ONE (18:55)
--- NOTE | 2018-02-17 20:00 | CATHPROC ---
Patient Name: TRACIE AKERS Study #: [id number] Initial MD: Ysabel Prieto Date of : 1930 Study Date: 02/17/2018 Cardiac Catheterization Report 02/17/2018 7:59:56 PM Financial #: [id number] 1 of 8 Patient Name: TRACIE AKERS Study #: [id number] Initial MD: Ysabel Prieto Date of : 1930 Study Date: 02/17/2018 Entire Case Report Patient Information Patient Name TRACIE AKERS Date of 1930 Age 87 years Financial # [id number] Gender M AlternateID Lab Number 2 Accession # Room Number 448 Height (in) 67.0 Height (cm) 170.1 BSA 1.78 Weight (lbs) 147.6 Weight (kg) 67.1 Patient Address/Phone Number Home Address [facility] Home Phone Number [facility] [id number] Study Information Study Number Scheduled Start Study Start [id number] 02/17/2018 Feb 17 2018 7:12PM Referring Institution Admit Source Facility Department 1 Other [facility] - [facility] Surveillance Observer Physician and Clinical Staff Initial Ysabel Laboy Broke Handler Wade Lal,RT(R) Other Anesthesia, ENTRY DRIVER OPERATOR Recorder Estelita Mathis,[place] Equipment Time Security Consultant Description Size Mfg Part Number Used/Scraped [id number] 19:23 [employer] CATHETER, JSN, QUAD FR 5 Used *[id number] 19:23 [employer] CATHETER, JSN, QUAD FR 5 Used *[id number] 19:23 [employer] CAT[employer], JSN, QUAD FR 5 Used *[id number] 19:23 [employer] CATHETER, JSN, QUAD FR 5 Used *[id number] 19:22 [employer] SHEATH, EPS, FR5 FAST CATH FR 5 Used *[id number] 19:23 [employer] SHE[employer], EPS, FR5 FAST CATH FR 5 Used *[id number] 19:23 [employer] SHE[employer], EPS, FR5 FAST CATH FR 5 Used *[id number] 19:23 [employer] SHE[employer], EPS, FR6 FAST CATH FR 6 Used *[id number] 02/17/2018 7:59:56 PM Financial #: [id number] 2 of 8 Patient Name: TRACIE AKERS Study #: [id number] Initial MD: Ysabel Prieto Date of : 1930 Study Date: 02/17/2018 Insurance Information Insurance Payor Medicare, Private Health Insurance Third Constitution Party Third Constitution Party Number [facility] History: Current Medications Medication Dosage/Unit Route Frequency Last Date/Time Taken ASA History: Allergies Allergy Reaction No Known Allergies Gryvmuo-Rbn-Veq Reductase ACHES Inhibitor egg banana milk wheat History: Risk Factors Family History of Hypertension Dyslipidemia Previous MN Previous Heart Failure Premature CAD Yes Yes No No Yes Prior Valve Prior PCI Prior PCIDate Prior CABG Prior CABGDate Surgery No Yes 08/30/2009 Yes 08/30/2002 Cerebrovascular 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 Diabetes Disease Disease Disease No Yes No Yes No History: Symptoms/Diagnosis Selection Items SOB History: CV Disease Selection Items Known CAD History: Stress Tests Stress or Imaging Studies Performed No History: Other Disease Selection Items CAD HTN 02/17/2018 7:59:56 PM Financial #: [id number] 3 of 8 Patient Name: TRACIE AKERS Study #: [id number] Initial MD: Ysabel Prieto Date of : 1930 Study Date: 02/17/2018 History: MN/CV Data Previous Cath Date Previous CABG Date 08/30/2009 08/30/2002 History: Other Current Smoker Method Quit Packs a Day Years Used Pack Years No Cigarettes 46 Years Ago 3 27 81 Labs Hgb (g/dl) Hct (%) WBC (l/cumm) Platelets (thousands) 11.60-17.00 35.00-51.00 4.00-11.00 150.00-450.00 12.0 35.2 6.1 175 Glucose (mg/dl) BUN (mg/dl) Creatinine (mg/dl) BUN:Creatinine (1:x) 74.00-106.00 7.00-18.00 0.50-1.30 10.00-20.00 105 15 0.9 16.7 Na (meq/l) K (meq/l) 136.00-145.00 3.50-5.10 142 4 INR (PTT:PT) 0.90-1.10 1.1 CPK-MB (ng/ML) 0.50-3.60 Not Drawn Medication Medication Total Dose (Bolus/Oral) Medication Total Dosage/Unit 2% XYLOCAINE 50 mL Medications (Bolus/Oral) Medication Time Given Dosage/Unit Administered By Reason 2% XYLOCAINE 02/17/2018 7:20:47 PM 50 mL Ysabel Prieto 50 mL 2% XYLOCAINE given in lab by Ysabel Prieto in Left Groin via Subcutaneous. Ordered by Paul Prieto 02/17/2018 7:59:56 PM Financial #: [id number] 4 of 8 Patient Name: TRACEI AKERS Study #: [id number] Initial MD: Ysabel Prieto Date of : 1930 Study Date: 02/17/2018 Initial Case Assessment Cardiovascular HR Rhythm NIBP Chest Pain 90 SR 118/67 0 Edema Present Skin color Skin None Normal Warm Dry Circulatory - Right Pulses Dorsalis Pedis 1 Scale (0,1,2,3,4,d) Circulatory - Left Pulses Dorsalis Pedis 1 Scale (0,1,2,3,4,d) Neurological State Oriented to time-place- Alert Moves all extremities person Respiration - General Respiration Rate SpO2 (%) (B/min) 18 99 02/17/2018 7:59:56 PM Financial #: [id number] 5 of 8 Patient Name: TRACIE AKERS Study #: [id number] Initial MD: Ysabel Prieto Date of : 1930 Study Date: 02/17/2018 Final Case Assessment Cardiovascular HR Rhythm NIBP Chest Pain 91 SR 133/60 0 Edema Present Skin color Skin None Normal Warm Dry Circulatory - Right Pulses Dorsalis Pedis 1 Scale (0,1,2,3,4,d) Circulatory - Left Pulses Dorsalis Pedis 1 Scale (0,1,2,3,4,d) Neurological State Oriented to time-place- Drowsy Moves all extremities person Comment: WAKING UP FROM ANESTHESIA Respiration - General Respiration Rate SpO2 (%) O2 (lpm) (B/min) 16 100 6 Chronological Log Time Study Chronological Log 18:48:00 Patient arrived via Bed. 18:48:00 Patient Name, D.O.B, / Armband Verified By R.N. 18:48:55 Anesthesia at bedside. Assumes care of patient. SEE RECORDS FOR ALL MEDS AND VITALS DURING PROCEDURE 18:49:00 Verbal Stimulation=2 Physical Stimulation=2 Airway=2 Respiration=2 TOTAL=8. (0=absent, 1=li mited, 2=present) 18:50:00 Patient has been NPO for More than 6Hrs. 0800 02/17/18 18:50:00 Skin Breakdown- RIGHT GROIN HEMATOMA NOTED, LEFT UPPER CHEST TEMP PACER IN PLACE 18:50:00 Patient Warmer Placed on the Table. 18:50:00 Disposable Defibrillator Pads Placed On Patient. 18:50:00 Table restraints applied according to hospital policy 18:51:00 History and physical on the chart or being dictated. 02/17/2018 7:59:56 PM Financial #: [id number] Patient Name: TRACIE AKERS Study #: [id number] Initial MD: Ysabel Prieto Date of : 1930 Study Date: 02/17/2018 Assessment: Initial Case, HR=90 BPM, Rhythm=SR, CUZG=006/67 mmhg, Chest Pain=0, Edema=None, Col or=Normal, Skin = Warm, Dry Right Pulses: Zak Ped=1 18:51:00 Left Pulses: Zak Ped=1 Neurological: State=Alert, Ox3, PARKER Respiration: Resp=18 B/min, SpO2=99 % 18:51:50 A # 20 IV was noted in the Antecubital (left). Grade = 0 18:51:55 A # 20 IV was noted in the Antecubital (right). Grade = 0 18:52:00 Bilateral groins prepped with 2% chlorhexidine, and draped after a 3 minute waiting time. 19:16:00 MD arrived. Time Out. Correct patient, procedure, procedure equipment, site and side verified with physicia n present. Time 19:19:20 concurred by MD, individual staff and ENTRY DRIVER OPERATOR. Time Out #2 - Consents verified, patient in correct position, all results are labled and displa yed, safety precautions 19:19:35 taken, antibiotics administered. Time out concurred by MD, individual staff and ENTRY DRIVER OPERATOR in procedu re 19:19:55 Case Start 19:20:47 50 mL 2% XYLOCAINE given in lab by Ysabel Prieto in Left Groin via Subcutaneous. Ordered by Ysabel Prieto. 19:21:05 Vascular access was obtained in the Subclav. Vein (Lft. 19:21:10 Vascular access was obtained in the Subclav. Vein (Lft. 19:21:11 Vascular access was obtained in the Subclav. Vein (Lft. 19:21:11 Vascular access was obtained in the Subclav. Vein (Lft. 19:22:01 A SHEATH, EPS, FR5 FAST CATH FR 5 was advanced into the Fem Vein (left) using the Modified Seldinger technique. 19:22:25 A SHEATH, EPS, FR5 FAST CATH FR 5 was advanced into the Fem Vein (left) using the Modified Seldinger technique. 19:22:40 A SHEATH, EPS, FR5 FAST CATH FR 5 was advanced into the Fem Vein (left) using the Modified Seldinger technique. 19:22:51 A SHEATH, EPS, FR6 FAST CATH FR 6 was advanced into the Fem Vein (left) using the Modified Seldinger technique. A CATHETER, JSN, QUAD FR 5 was advanced vis Fem Vein (left) and placed in the CS. Placement was visually 19:27:17 confirmed under fluoroscopy. A CATHETER, JSN, QUAD FR 5 was advanced vis Fem Vein (left) and placed in the HIS. Placement wa s visually 19:27:34 confirmed under fluoroscopy. A CATHETER, JSN, QUAD FR 5 was advanced vis Fem Vein (left) and placed in the HRA. Placement wa s visually 19:27:38 confirmed under fluoroscopy. A CATHETER, JSN, QUAD FR 5 was advanced vis Fem Vein (left) and placed in the RVA. Placement wa s visually 19:27:45 confirmed under fluoroscopy. 19:30:56 EP STUDY IN PROGRESS 19:43:57 D/C ISUPREL NO NEED FOR PACER 19:47:28 LEFT SUBCLAVIAN ACCESS REMOVED TEMP PACER MANUAL PRESSURE HELD BY WADE Gomez 19:48:17 Sheath removed; LEFT GROIN pressure applied to access site. DARIA Brown 19:48:37 Case End (Physician broke scrub) 19:48:42 Sterile dressing applied to site 19:48:43 No case complications noted. 19:48:44 Cine recording checked. 19:48:45 Bedside Report will be given. 19:48:49 PACU called. Spoke to [facility] 19:49:32 Defibrillator and ground pads removed. Skin intact. 02/17/2018 7:59:56 PM Financial #: [id number] 7 of 8 Patient Name: TRACIE AKERS Study #: [id number] Initial MD: Ysabel Prieto Date of : 1930 Study Date: 02/17/2018 Assessment: Final Case, HR=91 BPM, Rhythm=SR, DGFX=004/60 mmhg, Chest Pain=0, Edema=None, [place] r=Normal, Skin = Warm, Dry Right Pulses: Zak Ped=1 19:58:30 Left Pulses: Zak Ped=1 Neurological: State=Drowsy, Ox3, PARKER, Comment=WAKING UP FROM ANESTHESIA Respiration: Resp=16 B/min, ZaZ5=063 %, O2=6 lpm 19:59:33 EP Procedure was performed. EP STUDY ONLY 20:05:[facility] Study - Contrast Media Used In Study Contrast Total Opened (mL) Total Used (mL) Total Wasted (mL) Unspecified 0 0 0 End Study - Maximum Contrast Load Max Contrast Load (mL) 372.7 End Study - Radiation Exposure Fluoro Time (minutes) 1.8 End Study - Patient Disposition Complications Transferred To Interventional Outcome No Telemetry Bed successful 02/17/2018 7:59:56 PM Financial #: [id number] 8 of 8
[2018-02-17] MEDS ORDERED: DO NOT ADM ANY ANTICOAGULANT DRUGS PRN (20:45)
[2018-02-17] MEDS ORDERED: LORazepam 2 MG/ML VIAL IV ONE (23:00)
[2018-02-17] MEDS: TAMSULOSIN HCL 0.4 MG CAP PO SCH (23:16)
[2018-02-18] VITALS (20 sets, daily range): BP systolic 108–147; BP diastolic 55–70; PULSE 81–122; RESP 14–20; TEMP 97.8–98.4; O2SAT 93–99
[2018-02-18] MEDS: SODIUM CHLOR 0.9% 1000 ML 1,000 ML IV SCH ×3 (06:00→22:00)
[2018-02-18] MEDS ORDERED: PLAV75TA29 PO (08:21)
--- NOTE | 2018-02-18 08:21 | PD.CARD.PN ---
Subjective Subjective Remarks EP study negative yesterday no PPM due to anesthesia and baseline dementia, patient needed restraints due to combative behavior. Objective Medications Current Medications Medications (Trade) Dose Ordered Sig/Sung Route Start Time Stop Time Status Last Admin Sodium Chloride 1,000 ml @ 125 mls/hr Q8H IV 02/16/18 06:00 Cefazolin Sodium/ Dextrose 50 ml @ 100 mls/hr RV DETAILER PRN IV 02/16/18 06:00 02/19/18 05:59 02/16/18 08:10 (Betadine 5% Antisepsis Kit) 1 applic RV DETAILER PRN EACH NARE 02/16/18 06:00 02/19/18 05:59 (Bactroban Nasal 2% Oint) 1 applic RV DETAILER PRN EACH NARE 02/16/18 06:00 02/19/18 05:59 (Chlorhexidine 2% Cloth) 3 pack RV DETAILER PRN TOPICAL 02/16/18 06:00 02/19/18 05:59 02/16/18 06:12 Lactated Ringer's 1,000 ml @ 30 mls/hr Q24H PRN IV 02/16/18 06:00 02/19/18 05:59 Sodium Chloride 500 ml @ 30 mls/hr [id number] PRN IV 02/16/18 06:00 02/19/18 05:59 (Lopressor) 25 mg RV DETAILER PRN PO 02/16/18 06:00 02/19/18 05:59 (Betadine 5% Antisepsis Kit) 1 applic RV DETAILER PRN EACH NARE 02/16/18 06:00 02/19/18 05:59 02/16/18 06:12 (Chlorhexidine 2% Cloth) 3 pack RV DETAILER PRN TOPICAL 02/16/18 06:00 02/19/18 05:59 (NovoLIN R INJ) See Protocol Table ... RV DETAILER PRN SQ 02/16/18 06:00 02/19/18 05:59 (Aspirin Chew) 81 mg DAILY PO 02/17/18 09:00 02/17/18 09:17 (Plavix) 75 mg DAILY PO 02/17/18 09:00 02/17/18 09:17 (D50w (Vial) Inj) 50 ml UNSCH PRN IV PUSH 02/16/18 09:45 (Ferrous Sulfate) 325 mg DAILY PO 02/17/18 09:00 02/17/18 09:16 (Namenda) 5 mg BID PO 02/16/18 21:00 02/17/18 23:16 (KCl) 10 meq DAILY PO 02/17/18 09:00 02/17/18 09:17 (Flomax) 0.4 mg HS PO 02/16/18 21:00 02/17/18 23:16 (Protonix) 40 mg DAILY PO 02/17/18 09:00 02/17/18 09:17 Potassium Chloride 100 ml @ 50 mls/hr Q2H PRN IV 02/16/18 22:15 Potassium Chloride 100 ml @ 50 mls/hr Q2H PRN IV 02/16/18 22:15 (K-Lyte Cl Eff) 50 meq UNSCH PRN PO 02/16/18 22:15 Potassium Chloride 100 ml @ 25 mls/hr UNSCH PRN IV 02/16/18 22:15 Potassium Chloride 100 ml @ 50 mls/hr Q2H PRN IV 02/16/18 22:15 Magnesium Sulfate 4 gm/Sodium Chloride 100 ml @ 50 mls/hr UNSCH PRN IV 02/16/18 22:15 (Mag-Ox) 800 mg UNSCH PRN PO 02/16/18 22:15 Magnesium Sulfate 2 gm/Sodium Chloride 100 ml @ 50 mls/hr UNSCH PRN IV 02/16/18 22:15 (K-Phos) 2,000 mg Q4H PRN PO 02/16/18 22:15 Sodium Phosphate 30 mmol/Sodium Chloride 250 ml @ 42 mls/hr UNSCH PRN IV 02/16/18 22:15 (K-Phos) 2,000 mg UNSCH PRN PO/TUBE 02/16/18 22:15 Potassium Phosphate 30 mmol/ Sodium Chloride 260 ml @ 42 mls/hr UNSCH PRN IV 02/16/18 22:15 (Duoneb Neb) 1 ampule Q2HR NEB PRN INH 02/16/18 22:15 (Lasix) 20 mg DAILY PO 02/17/18 09:00 02/17/18 09:16 (Prinivil) 5 mg DAILY PO 02/17/18 09:00 02/17/18 09:17 ([facility] [place] [facility]) ALL NURSING DEPARTME... UNSCH PRN .XX 02/17/18 20:45 02/18/18 20:44 Vital Signs / I&O Vital Signs Date Time Temp Pulse Resp B/P (MAP) Pulse Ox O2 Delivery O2 Flow Rate FiO2 02/18/18 08:00 97 02/18/18 07:00 97.9 101 16 147/70 (95) 95 02/18/18 07:00 101 02/18/18 04:55 97.8 114 135/59 (84) 93 02/18/18 03:42 122 02/18/18 02:15 122 02/18/18 01:00 108 02/18/18 00:00 106 02/17/18 23:00 94 02/17/18 23:00 97.5 88 133/60 (84) 99 02/17/18 23:00 99 Nasal Cannula 2.00 02/17/18 21:15 98.0 84 19 123/58 (79) 100 Nasal Cannula 2 02/17/18 21:00 83 21 130/61 (84) 100 Nasal Cannula 2 02/17/18 20:45 85 25 148/66 (93) 100 Nasal Cannula 2 02/17/18 20:30 85 25 123/58 (79) 100 Nasal Cannula 2 02/17/18 20:18 98.3 85 25 108/53 (71) 100 Nasal Cannula 2 02/17/18 15:00 78 02/17/18 15:00 78 02/17/18 15:00 97.7 78 18 132/63 (86) 96 02/17/18 15:00 96 Room Air 02/17/18 11:00 78 02/17/18 11:00 78 02/17/18 11:00 98.2 78 18 120/54 (76) 94 02/17/18 11:00 94 Room Air 02/17/18 08:30 94 Nasal Cannula 2.00 I/O 02/17/18 02/17/18 02/17/18 02/18/18 02/18/18 02/18/18 07:00 15:00 23:00 07:00 15:00 23:00 Intake Total 360 ml 240 ml 240 ml Output Total 498 ml 575 ml 425 ml Balance -138 ml -335 ml -185 ml Intake Oral 360 ml 240 ml 240 ml Output Urine Total 495 ml 575 ml 425 ml Stool Total 3 ml # Bowel Movements 2 Physical Exam HEAD: Normocephalic. EYES: No scleral icterus. No injection or drainage. NECK: Supple, trachea midline. No JVD or lymphadenopathy. CARDIOVASCULAR: Regular rate and rhythm without murmurs, gallops, or rubs. RESPIRATORY: Breath sounds equal bilaterally. No accessory muscle use. GASTROINTESTINAL: Abdomen soft, non-tender, nondistended. MUSCULOSKELETAL: No cyanosis, or edema. BACK: Nontender without obvious deformity. No CVA tenderness. Imaging Last Impressions Chest X-Ray 02/16/18 0000 Signed Impressions: CONCLUSION: 1. Left-sided venous catheter with tip in the deep right atrium. 2. Stable examination with persistent minimal bibasilar airspace disease, like ly atelectasis. 3. Cardiomegaly. Assessment and Plan Assessment and Plan aortic stenosis - s/p transcatheter aortic valve replacement. feeling well. No PPM. appreciate EP input hold any sedation. discontinue restraints this am. will need 24 hours without restraints prior to discharge. no BB continue ACEi asa plavix ambulate DC planning for tomorrow fu in 4 weeks Armando Ron MD Feb 18, 2018 08:21
[2018-02-18] MEDS ORDERED: FERR325T18 PO (08:22)
--- NOTE | 2018-02-18 09:21 | EKG ---
Date Performed: 02/17/2018 Time Performed: 20:37:14 PTAGE: 87 years EKG: Sinus rhythm POSSIBLE LEFT ATRIAL ENLARGEMENT BORDERLINE RIGHT AXIS DEVIATION INTRAVENTRICULAR CONDUCTION DELAY A BNORMAL ECG Since the PREVIOUS TRACING , no significant change noted PREVIOUS TRACIN02/17/2018 05.45 DOCTOR: Jeremías Claudio Interpretating Date/Time 02/18/2018 09:15:36
[2018-02-18] MEDS: ASPIRIN 81 MG CHEW TAB PO SCH (09:55)
[2018-02-18] MEDS: FUROSEMIDE 20 MG TAB PO SCH (09:55)
[2018-02-18] MEDS: CLOPIDOGREL 75 MG TAB PO SCH (09:55)
[2018-02-18] MEDS: POTASSIUM CHLORIDE 10 MEQ CAP PO SCH (09:55)
[2018-02-18] MEDS: LISINOPRIL 5 MG TAB PO SCH (09:56)
[2018-02-18] MEDS: MEMANTINE HCL 5 MG TAB PO SCH ×2 (09:56→20:39)
[2018-02-18] MEDS: FERROUS SULFATE 325 MG (65 MG ELEMENTAL IRON) TAB PO SCH (09:56)
[2018-02-18] MEDS: PANTOPRAZOLE SOD 40 MG DELAYED RELEASE TAB PO SCH (09:56)
[2018-02-18] MEDS: TAMSULOSIN HCL 0.4 MG CAP PO SCH (20:39)
[2018-02-19] VITALS (27 sets, daily range): BP systolic 96–128; BP diastolic 52–56; PULSE 60–103; RESP 15–21; TEMP 97.5–98.1; O2SAT 94–100
[2018-02-19] MEDS: SODIUM CHLOR 0.9% 1000 ML 1,000 ML IV SCH ×3 (05:27→22:00)
[2018-02-19] MEDS: FERROUS SULFATE 325 MG (65 MG ELEMENTAL IRON) TAB PO SCH (09:30)
[2018-02-19] MEDS: POTASSIUM CHLORIDE 10 MEQ CAP PO SCH (09:31)
[2018-02-19] MEDS: MEMANTINE HCL 5 MG TAB PO SCH ×2 (09:31→20:42)
[2018-02-19] MEDS: FUROSEMIDE 20 MG TAB PO SCH (09:31)
[2018-02-19] MEDS: CLOPIDOGREL 75 MG TAB PO SCH (09:31)
[2018-02-19] MEDS: ASPIRIN 81 MG CHEW TAB PO SCH (09:32)
[2018-02-19] MEDS: LISINOPRIL 5 MG TAB PO SCH (09:32)
[2018-02-19] MEDS: PANTOPRAZOLE SOD 40 MG DELAYED RELEASE TAB PO SCH (09:32)
--- NOTE | 2018-02-19 10:41 | HHI.DS ---
Discharge Summary Admission Date Feb 16, 2018 at 05:32 Discharge Date: Feb 19, 2018 Admitting Diagnosis CBC/BMP: 02/17/18 0530 02/17/18 0530 Significant Findings Laboratory Tests Test 02/17/18 05:30 Red Blood Count 3.34 MIL/MM3 (4.50-5.90) Hemoglobin 10.6 GM/DL (13.0-17.0) Hematocrit 30.5 % (39.0-51.0) Platelet Count 145 TH/MM3 (150-450) Blood Urea Nitrogen 20 MG/DL (7-18) Random Glucose 107 MG/DL (74-106) Total Protein 5.8 GM/DL (6.4-8.2) Albumin 3.1 GM/DL (3.4-5.0) Calcium Level 8.1 MG/DL (8.5-10.1) Hospital Course 02/16 Procedure Transcatheter aortic valve replacment with a 29 Evolut R tissue valve Balloon aortic valvuloplasty with a 24 x 6 True Balloon Bilateral femoral arterial access with Perclose closure on right Left femoral venous access Aortography Fluoroscopy 02/19 Doing well D/C SNF Pt Condition on Discharge: Good Discharge Disposition: Discharge to SNF Discharge Instructions DIET: Follow Instructions for: Heart Healthy Diet Activities you can perform: Full Weight Bearing, Shower/Bath Activities to avoid: Strenuous Activity, Driving Follow up Referrals: Appointment for Follow Up - 4 Weeks with Heaven Carlos MD Cardiology - 4 Weeks with Armando Ron MD PCP Follow-up - 4 Weeks New Medications: Clopidogrel (Plavix) 75 Mg Tab 75 MG PO DAILY for Blood Clot Prevention, #30 TAB 3 Refills Ferrous Sulfate (Ferrous Sulfate) 325 Mg (65 Mg Iron) Tablet 325 MG PO DAILY for Nutritional Supplement, #30 TAB 3 Refills Continued Medications: Albuterol Sulfate (Proair Hfa) 90 Mcg Hfa.aer.ad Aspirin (Aspirin) 81 Mg Chew 81 MG CHEW DAILY, TAB 0 Refills Fluticasone Nasal [place] (Fluticasone Nasal [place]) 50 Mcg/Act Naspr 50 MCG EACH NARE BID for Allergy Management, #1 BOTTLE 0 Refills 50 mcg/spray Furosemide (Furosemide) 20 Mg Tab 20 MG PO BID, #60 TAB 0 Refills Memantine (Memantine) 5 Mg Tab 5 MG PO BID for Alzheimer's Dementia, TAB 0 Refills Omeprazole (Omeprazole) 40 Mg Cap 40 MG DAILY, #30 CAP 0 Refills Potassium Chloride ER (Potassium Chloride ER) 10 Meq Cap 10 MEQ PO DAILY for Electrolyte Replacement, #30 CAP 0 Refills Tamsulosin (Tamsulosin) 0.4 Mg Cap 0.4 MG HS for Manage Prostate Problems, #30 CAP 0 Refills Ashli Knight MD Feb 19, 2018 10:41
[2018-02-19] MEDS: TAMSULOSIN HCL 0.4 MG CAP PO SCH (20:42)
[2018-02-19] MEDS ORDERED: MELATONIN 5 MG TAB PO ONE (22:30)
[2018-02-20] VITALS (17 sets, daily range): BP systolic 98–111; BP diastolic 54–56; PULSE 68–97; RESP 16–18; TEMP 98–98.3; O2SAT 82–99
[2018-02-20] MEDS: SODIUM CHLOR 0.9% 1000 ML 1,000 ML IV SCH (05:16)
[2018-02-20] MEDS: PANTOPRAZOLE SOD 40 MG DELAYED RELEASE TAB PO SCH (08:22)
[2018-02-20] MEDS: ASPIRIN 81 MG CHEW TAB PO SCH (08:22)
[2018-02-20] MEDS: FERROUS SULFATE 325 MG (65 MG ELEMENTAL IRON) TAB PO SCH (08:22)
[2018-02-20] MEDS: MEMANTINE HCL 5 MG TAB PO SCH (08:22)
[2018-02-20] MEDS: POTASSIUM CHLORIDE 10 MEQ CAP PO SCH (08:22)
[2018-02-20] MEDS: LISINOPRIL 5 MG TAB PO SCH (08:23)
[2018-02-20] MEDS: FUROSEMIDE 20 MG TAB PO SCH (08:23)
[2018-02-20] MEDS: CLOPIDOGREL 75 MG TAB PO SCH (08:23)
--- NOTE | 2018-02-22 10:25 | MA ---
cc: Ysabel Prieto MD,Armando Ashby MD DATE: 02/22/2018 DATE OF PROCEDURE: 02/17/2018. PROCEDURE PERFORMED: Electrophysiology study, CS cannulation, repeat electrophysiology study and Isuprel infusion. INDICATIONS: An 87-year-old gentleman with aortic stenosis, status post TAVR, developed new left bundle branch block postprocedure. Referred for electrophysiology study and possible device insertion. The risks, the nature and the benefits of the procedure are clearly stated to him. Risks include pneumothorax, cardiac perforation, stroke, need for open heart surgery and even . The patient understood and agreed to proceed. DESCRIPTION OF PROCEDURE: After written informed consent was obtained, the patient was brought to the EP lab where he was prepped and draped in the usual sterile fashion. Conscious sedation was initiated and maintained throughout the procedure by anesthesiologist. Once sedation was verified, the right inguinal area was anesthetized with 2% Xylocaine. Using modified Seldinger technique, the right femoral vein was cannulated on 4 occasions, 4 guidewires were advanced. Over the wire 3, 5 and 6-Mongolian Hemaquet were advanced. Then, under fluoroscopic guidance, through the 5 and 6-Mongolian Hemaquet, four 5-Mongolian Celsa curved quadripolar electrophysiology catheters advanced and placed around the His, upper right atrium, coronary sinus and the right ventricular apex. Basic intervals were measured. They were within normal limits. At this point, atrial pacing protocol was performed. Atrial pacing protocol consists of incremental atrial pacing, as well as program simulation with 410 cycle length and up to 1 extrastimuli delivered. No tachyarrhythmia was induced. Then ventricular pacing protocols were performed. There was no VA conduction. No tachyarrhythmia was induced. Isuprel infusion was initiated. There was good conduction. No tachyarrhythmia was induced. At that point, the procedure was complete. All catheters were removed. The patient is going to be transferred to the recovery room. No incident to report. The patient tolerated the procedure. Blood loss minimal. 1. Electrocardiogram. At baseline, the patient was in sinus. Postprocedure electrocardiogram was unchanged. 2. Basic interval. Basic interval was around 790 milliseconds, AH was around 100 and HV was around 46 milliseconds. 3. Atrial pacing protocol. No tachyarrhythmia was induced. Then, ventricular pacing protocol no tachyarrhythmia was induced. CONCLUSION: Negative electrophysiology study for supraventricular tachyarrhythmia. No . COMMENT AND RECOMMENDATION: The patient is going to be transferred to the recovery room. There is no need for pacer implant. The HV less than 50 millisecond. The patient can be discharged home by Dr. Ron and follow if necessary as an outpatient. Ysabel Prieto MD HS/TL , 09:33 AM , 10:24 AM
== END 2018-02-20 14:16 | DRG 267 ==
LOC: HSDI 05:32 → HDIC 05:33 → HCVI 09:25 → HCPC 02-17 21:30
PROVIDERS: ADMIT Internal Medicine; ATTEND Internal Medicine
PROC: 02RF38Z Replacement of Aortic Valve with Zooplastic Tissue, Percutaneous Approach (ICD-10-PCS; principal; 2018-02-16 07:21)
PROC: B246ZZ4 Ultrasonography of Right and Left Heart, Transesophageal (ICD-10-PCS; 2018-02-16 07:21)
PROC: 5A1223Z Performance of Cardiac Pacing, Continuous (ICD-10-PCS; 2018-02-16 07:21)
PROC: 4A0234Z Measurement of Cardiac Electrical Activity, Percutaneous Approach (ICD-10-PCS; 2018-02-17)
DX: I35.0 Nonrheumatic aortic (valve) stenosis (principal); F03.91 Unspecified dementia, unspecified severity, with behavioral disturbance; I11.0 Hypertensive heart disease with heart failure; I50.32 Chronic diastolic (congestive) heart failure; I25.10 Atherosclerotic heart disease of native coronary artery without angina pectoris; E78.5 Hyperlipidemia, unspecified; R26.0 Ataxic gait; D64.9 Anemia, unspecified; N40.0 Benign prostatic hyperplasia without lower urinary tract symptoms; K21.9 Gastro-esophageal reflux disease without esophagitis; M19.90 Unspecified osteoarthritis, unspecified site; I44.7 Left bundle-branch block, unspecified; Z95.1 Presence of aortocoronary bypass graft; Z98.1 Arthrodesis status; Z79.82 Long term (current) use of aspirin; Z87.01 Personal history of pneumonia (recurrent); Z86.73 Personal history of transient ischemic attack (TIA), and cerebral infarction without residual deficits; Z78.1 Physical restraint status; Z85.828 Personal history of other malignant neoplasm of skin; Z87.891 Personal history of nicotine dependence; Z00.6 Encounter for examination for normal comparison and control in clinical research program
CPT/HCPCS: 33210; 33361; 36415; 71045; 80048; 80053; 85002; 85025; 85027; 85610; 86850; 86900; 86901; 86920; 86922; 92986; 93005; 93308; 93312; 93320; 93325; 93620; 93623; 94150; 94640; 94667; 94668; C1730; C1760; C1769; C1893; G0269; J0171; J0690; J1644; J2060; J2250; J2370; J2405; J2710; J2720; J3010; J7040; J7050; J7120; Q9967